=== PATIENT | female | born 1960 | race Hispanic/Latino ===

== ENCOUNTER 2021-03-04 23:46 | Inpatient (IN) | payer OTHER ==
--- OUTSIDE RECORDS SUMMARY | 2021-03-04 23:51 | XMS REPORT | Continuity of Care Document ---
:1960 Author Organization [facility] t Address [address] [place] [address] Care Team Providers Name Role Phone Samir Howard Attending Clinician Unavailable Tan Camargo DO Attending Clinician Shahab BAE Attending Clinician Unavailable Renetta MANDUJANO Attending Clinician Unavailable Fatemeh Miller MD F Attending Clinician Doctor Unassigned, Name Attending Clinician Unavailable Samir Howard Admitting Clinician Unavailable Payers Payer Name Policy Type Policy Number Effective Date Expiration Date Samir HA BCBS BLUE [id number] 2018 ADVANTAGE O 00:00:00 Problems Condition Condition Condition Status Onset Resolution Last Treating Co mments Source Name Details Category Date Date Treatment Clinician Date Morbid Morbid Disease Active 2015-03 Univers obesity obesity 2-01 [place] index 00 Me dical of 50 or of 50 or Branch higher higher Epiretinal Epiretinal Disease Active U [facility] membrane, membrane, 8-19 ity of left eye left eye 00:00: [place] 00 Medical Branch Cataracts, Cataracts, Disease Active U nivers bilateral bilateral 8-19 ity of 00:00: [place] 00 Medical Branch Epiretinal Epiretinal Disease Active U nivers membrane, membrane, 8-19 ity of left eye left eye 00:00: [place] 00 Medical Branch IIH IIH Disease Active Univers (idiopathi (idiopathi 428 it y of c c 00:00: [place] intracrani intracrani 00 Me dical al al Branch hypertensi hypertensi on) on) 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 00:00: [place] vein vein 00 Medical occlusion) occlusion) Br anch , left , left Macular Macular Disease Active Univers hole of hole of 4-28 [place] of right eye [place] 00:[place] Posterior Posterior Disease Active Uni vers vitreous vitreous 4-28 [place] of both 00 Medical eyes eyes 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 4- ity of 00:00: [place] 00 [facility] Branch Allergies, Adverse Reactions, Alerts Allergy Allergy Status Severity Reaction(s) Onset Inactive Treating Comm ents Source Name Type Date Date Clinician NO KNOWN Drug Active Univers ALLERGIE Class ity of S [facility] Social History Social Habit Start Date Stop Date Quantity Comments Source Tobacco use and 2019-07-06 2019-07-06 Never used Universit y of exposure 00:00:00 00:00:00 [facility] Alcohol intake 2019-07-06 2019-07-06 Current University 00:00:00 00:00:00 non-drinker of [facility] alcohol Branch (finding) Sex Ass[birth year] [facility] y of 00:00:00 00:00:00 [facility] Smoking Status Start Date Stop Date Source Never smoker [facility] Medications Ordered Filled Start Stop Current Ordering Indication Dosage Frequency Signature Comments Components Source Medication Medication Date Date Medication? Clinician (SIG) Name Name aflibercept 2020- No 2mg Unive rs (EYLEA) 06-07 ity of intravitrea 17:45: 16:51 [place] l injection 00 :00 Medical 2 mg Branch aflibercept 2019- No 2mg 2 mg, Univ ers (EYLEA) 06-07 Intravitre ity o f intravitrea 17:45: 16:51 al - Left [place] l injection 00 :00 Eye, ONCE, Me dical 2 mg 1 dose, Branch Ewa 06/08/19 at 1245, Routine
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 ity of VITAMIN D2, 21:11: [place] (VITAMIN D 44 Medical ORAL) Branch Magnesium 2019-0 Yes Take by Univ ers Oxide-Mg AA 1-18 mouth. ity of Chelate 21:11: [place] (MAGNESIUM, 44 Medical OXIDE/AA Branch CHELATE,) 300 mg Cap ERGOCALCIFE 2019-0 Yes Take by Un [facility] ROL, 1-18 mouth. ity of VITAMIN D2, 21:11: [place] (VITAMIN D 44 Medical ORAL) Branch Magnesium 2019-0 Yes Take by Univ ers Oxide-Mg AA 1-18 mouth. ity of Chelate 21:11: [place] (MAGNESIUM, 44 Medical OXIDE/AA Branch CHELATE,) 300 mg Cap ERGOCALCIFE 2019-0 Yes Take by [facility] ROL, 1-18 mouth. ity of VITAMIN D2, 21:11: [place] (VITAMIN D 44 Medical ORAL) Branch Magnesium 2019-0 Yes Take by Univ ers Oxide-Mg AA 1-18 mouth. ity of Chelate 21:11: [place] (MAGNESIUM, 44 Medical OXIDE/AA Branch CHELATE,) 300 mg Cap ERGOCALCIFE 2019-0 Yes Take by [facility] ROL, 1-18 mouth. ity of VITAMIN D2, 21:11: [place] (VITAMIN D 44 Medical ORAL) Branch Magnesium 2019-0 Yes Take by Univ ers Oxide-Mg AA 1-18 mouth. ity of Chelate 21:11: [place] (MAGNESIUM, 44 Medical OXIDE/AA Branch CHELATE,) 300 mg Cap ERGOCALCIFE 2019-0 Yes Take by Un [facility] ROL, 1-18 mouth. ity of VITAMIN D2, 21:11: [place] (VITAMIN D 44 Medical ORAL) Branch Magnesium 2019-0 Yes Take by Univ ers Oxide-Mg AA 1-18 mouth. ity of Chelate 21:11: [place] (MAGNESIUM, 44 Medical OXIDE/AA Branch CHELATE,) 300 mg Cap ERGOCALCIFE 2019-0 Yes Take by Un [facility] ROL, 1-18 mouth. ity of VITAMIN D2, 21:11: [place] (VITAMIN D 44 Medical ORAL) Branch Magnesium 2019-0 Yes Take by Univ ers Oxide-Mg AA 1-18 mouth. ity of Chelate 21:11: [place] (MAGNESIUM, 44 Medical OXIDE/AA Branch CHELATE,) 300 mg Cap ERGOCALCIFE 2019-0 Yes Take by Un [facility] ROL, 1-18 mouth. ity of VITAMIN D2, 21:11: [place] (VITAMIN D 44 Medical ORAL) Branch Magnesium 2019-0 Yes Take by Univ ers Oxide-Mg AA 1-18 mouth. ity of Chelate 21:11: [place] (MAGNESIUM, 44 Medical OXIDE/AA Branch CHELATE,) 300 mg Cap ERGOCALCIFE 2019-0 Yes Take by Un [facility] ROL, 1-18 mouth. ity of VITAMIN D2, 21:11: [place] (VITAMIN D 44 Medical ORAL) Branch Magnesium 2019-0 Yes Take by Univ ers Oxide-Mg AA 1-18 mouth. ity of Chelate 21:11: [place] (MAGNESIUM, 44 Medical OXIDE/AA Branch CHELATE,) 300 mg Cap ERGOCALCIFE 2019-0 Yes Take by Un [facility] ROL, 1-18 mouth. ity of VITAMIN D2, 21:11: [place] (VITAMIN D 44 Medical ORAL) Branch Magnesium 2019-0 Yes Take by Univ ers Oxide-Mg AA 1-18 mouth. ity of Chelate 21:11: [place] (MAGNESIUM, 44 Medical OXIDE/AA Branch CHELATE,) 300 mg Cap ERGOCALCIFE 2019-0 Yes Take by Un [facility] ROL, 1-18 mouth. ity of VITAMIN D2, 21:11: [place] (VITAMIN D 44 Medical ORAL) Branch Magnesium 2019-0 Yes Take by Univ ers Oxide-Mg AA 1-18 mouth. ity of Chelate 21:11: [place] (MAGNESIUM, 44 Medical OXIDE/AA Branch CHELATE,) 300 mg Cap ERGOCALCIFE 2019-0 Yes Take by Un [facility] ROL, 1-18 mouth. ity of VITAMIN D2, 21:11: [place] (VITAMIN D 44 Medical ORAL) Branch Magnesium 2019-0 Yes Take by Univ ers Oxide-Mg AA 1-18 mouth. ity of Chelate 21:11: [place] (MAGNESIUM, 44 Medical OXIDE/AA Branch CHELATE,) 300 mg Cap ERGOCALCIFE 2019-0 Yes Take by Un [facility] ROL, 1-18 mouth. ity of VITAMIN D2, 21:11: [place] (VITAMIN D 44 Medical ORAL) Branch Magnesium 2019-0 Yes Take by Univ ers Oxide-Mg AA 1-18 mouth. ity of Chelate 21:11: [place] (MAGNESIUM, 44 Medical OXIDE/AA Branch CHELATE,) 300 mg Cap ERGOCALCIFE 2019-0 Yes Take by Un [facility] ROL, 1-18 mouth. ity of VITAMIN D2, 21:11: [place] (VITAMIN D 44 Medical ORAL) Branch Magnesium 2019-0 Yes Take by Univ ers Oxide-Mg AA 1-18 mouth. ity of Chelate 21:11: [place] (MAGNESIUM, 44 Medical OXIDE/AA Branch CHELATE,) 300 mg Cap ERGOCALCIFE 2019-0 Yes Take by [facility] ROL, 1-18 mouth. ity of VITAMIN D2, 21:11: [place] (VITAMIN D 44 Medical ORAL) Branch Magnesium 2019-0 Yes Take by Univ ers Oxide-Mg AA 1-18 mouth. ity of Chelate 21:11: [place] (MAGNESIUM, 44 Medical OXIDE/AA Branch CHELATE,) 300 mg Cap ERGOCALCIFE 2019-0 Yes Take by [facility] ROL, 1-18 mouth. ity of VITAMIN D2, 21:11: [place] (VITAMIN D 44 Medical ORAL) Branch Magnesium 2019-0 Yes Take by Univ ers Oxide-Mg AA 1-18 mouth. ity of Chelate 21:11: [place] (MAGNESIUM, 44 Medical OXIDE/AA Branch CHELATE,) 300 mg Cap ERGOCALCIFE 2019-0 Yes Take by Un [facility] ROL, 1-18 mouth. ity of VITAMIN D2, 21:11: [place] (VITAMIN D 44 Medical ORAL) Branch Magnesium 2019-0 Yes Take by Univ ers Oxide-Mg AA 1-18 mouth. ity of Chelate 21:11: [place] (MAGNESIUM, 44 Medical OXIDE/AA Branch CHELATE,) 300 mg Cap ERGOCALCIFE 2019-0 Yes Take by Un [facility] ROL, 1-18 mouth. ity of VITAMIN D2, 21:11: [place] (VITAMIN D 44 Medical ORAL) Branch Magnesium 2019-0 Yes Take by Univ ers Oxide-Mg AA 1-18 mouth. ity of Chelate 21:11: [place] (MAGNESIUM, 44 Medical OXIDE/AA Branch CHELATE,) 300 mg Cap valsartan 2018-0 Yes 40mg Take 40 mg [facility] (DIOVAN) 40 9-21 by mouth ity of mg tablet 20:39: daily. [place] [address] Medical Branch valsartan 2018-0 Yes 40mg Take 40 mg [facility] (DIOVAN) 40 9-21 by mouth ity of mg tablet 20:39: daily. [address] Branch valsartan 2018-0 Yes 40mg Take 40 mg [facility] (DIOVAN) 40 9-21 by mouth ity of mg tablet 20:39: daily. [address] valsartan 2018-0 Yes 40mg Take 40 mg [facility] (DIOVAN) 40 9-21 by mouth ity of mg tablet 20:39: daily. [address] valsartan 2018-0 Yes 40mg Take 40 mg [facility] (DIOVAN) 40 9-21 by mouth ity of mg tablet 20:39: daily. [address] valsartan 0 Yes 40mg Take 40 mg [facility] (DIOVAN) 40 9-21 by mouth ity of mg tablet 20:39: daily. [address] valsartan 0 Yes 40mg Take 40 mg [facility] (DIOVAN) 40 9-21 by mouth ity of mg tablet 20:39: daily. [address] valsartan Yes 40mg Take 40 mg [facility] (DIOVAN) 40 9-21 by mouth ity of mg tablet 20:39: daily. [address] valsartan Yes 40mg Take 40 mg [place] (DIOVAN) 40 9-21 by mouth ity of mg tablet 20:39: daily. [address] valsartan Yes 40mg Take 40 mg [place] (DIOVAN) 40 9-21 by mouth ity of mg tablet 20:39: daily. [address] valsartan 0 Yes 40mg Take 40 mg [facility] [place] (DIOVAN) 40 9-21 by mouth ity of mg tablet 20:39: daily. [address] valsartan 0 Yes 40mg Take 40 mg [place] (DIOVAN) 40 9-21 by mouth ity of mg tablet 20:39: daily. [address] valsartan 0 Yes 40mg Take 40 mg [facility] [place] (DIOVAN) 40 9-21 by mouth ity of mg tablet 20:39: daily. [address] valsartan 2018-0 Yes 40mg Take 40 mg [facility] (DIOVAN) 40 9-21 by mouth ity of mg tablet 20:39: daily. [address] valsartan 2017-0 Yes 40mg Take 40 mg [facility] [place] (DIOVAN) 40 9-21 by mouth ity of mg tablet 20:39: daily. [address] valsartan Yes 40mg Take 40 mg [facility] (DIOVAN) 40 9-21 by mouth ity of mg tablet 20:39: daily. [address] Branch valsartan Yes 40mg Take 40 mg [facility] (DIOVAN) 40 9-21 by mouth ity of mg tablet 20:39: daily. [place] [address] Medical Branch losartan 50 Yes TK 1 T PO U nivers mg tablet 9-08 QD ity of 00:00: [place] [facility] losartan 50 Yes TK 1 T PO U nivers mg tablet 12-04 QD ity of 00:00: [place] [facility] losartan 50 2017- Yes TK 1 T PO U nivers mg tablet 12-04 QD ity of 00:00: [place] [facility] losartan 50 Yes TK 1 T PO U nivers mg tablet 12-04 QD ity of 00:00: [place] [facility] losartan 50 Yes TK 1 T PO U nivers mg tablet 12-04 QD ity of 00:00: [place] [facility] losartan 50 Yes TK 1 T PO U nivers mg tablet 12-04 QD ity of 00:00: [place] [address] Medical Branch losartan 50 2017- Yes TK 1 T PO U nivers mg tablet 12-04 QD ity of 00:00: [place] [facility] Branch losartan 50 2017- Yes TK 1 T PO U nivers mg tablet 12-04 QD ity of 00:00: [place] [facility] Branch losartan 50 Yes TK 1 T PO U nivers mg tablet 12-04 QD ity of 00:00: [place] [facility] losartan 50 2017- Yes TK 1 T PO U nivers mg tablet 12-04 QD ity of 00:00: [place] [facility] losartan 50 Yes TK 1 T PO U nivers mg tablet 08 QD ity of 00:00: [place] [facility] losartan 50 2017- Yes TK 1 T PO U nivers mg tablet - QD ity of 00:00: [place] [facility] Branch losartan 50 Yes TK 1 T PO U nivers mg tablet 08 QD ity of 00:00: [place] [facility] Branch losartan 50 2017- Yes TK 1 T PO U nivers mg tablet -08 QD ity of 00:00: 00 Medical Branch losartan 50 2018-0 Yes TK 1 T PO U nivers mg tablet 08 QD ity of 00:00: Medical Branch losartan 50 2018-0 Yes TK 1 T PO U nivers mg tablet -08 QD ity of 00:00: Medical Branch losartan 50 2018-0 Yes TK 1 T PO U nivers mg tablet 9-08 QD ity of 00:00: Medical Branch AMOXICILLIN 2018-0 Yes Take by [facility] /POTASSIUM 6-20 mouth. ity of CLAV 19:55: [place] (AUGMENTIN 50 Medical ORAL) Branch AMOXICILLIN 2017-0 Yes Take by [facility] /POTASSIUM 6-20 mouth. ity of CLAV 19:55: [place] (AUGMENTIN 50 Medical ORAL) Branch AMOXICILLIN 2017-0 Yes Take by [facility] /POTASSIUM 6-20 mouth. ity of CLAV 19:55: [place] (AUGMENTIN 50 Medical ORAL) Branch AMOXICILLIN 0 Yes Take by [facility] /POTASSIUM 6-20 mouth. ity of CLAV 19:55: [place] (AUGMENTIN 50 Medical ORAL) Branch AMOXICILLIN 0 Yes Take by [facility] /POTASSIUM 6-20 mouth. ity of CLAV 19:55: [place] (AUGMENTIN 50 Medical ORAL) Branch AMOXICILLIN 0 Yes Take by [facility] /POTASSIUM 6-20 mouth. ity of CLAV 19:55: [place] (AUGMENTIN 50 Medical ORAL) Branch AMOXICILLIN 2017-0 Yes Take by [facility] /POTASSIUM 6-20 mouth. ity of CLAV 19:55: [place] (AUGMENTIN 50 Medical ORAL) Branch AMOXICILLIN 0 Yes Take by [facility] /POTASSIUM 6-20 mouth. ity of CLAV 19:55: [place] (AUGMENTIN 50 Medical ORAL) Branch AMOXICILLIN 2017-0 Yes Take by [facility] /POTASSIUM 6-20 mouth. ity of CLAV 19:55: [place] (AUGMENTIN 50 Medical ORAL) Branch AMOXICILLIN 2017-0 Yes Take by [facility] /POTASSIUM 6-20 mouth. ity of CLAV 19:55: [place] (AUGMENTIN 50 Medical ORAL) Branch AMOXICILLIN 2017-0 Yes Take by [facility] /POTASSIUM 6-20 mouth. ity of CLAV 19:55: [place] (AUGMENTIN 50 Medical ORAL) Branch AMOXICILLIN 2017-0 Yes Take by [facility] /POTASSIUM 6-20 mouth. ity of CLAV 19:55: [place] (AUGMENTIN 50 Medical ORAL) Branch AMOXICILLIN 2018-0 Yes Take by [facility] /POTASSIUM 6-20 mouth. ity of CLAV 19:55: [place] (AUGMENTIN 50 Medical ORAL) Branch AMOXICILLIN Yes Take by [facility] /POTASSIUM 6-20 mouth. ity of CLAV 19:55: [place] (AUGMENTIN 50 Medical ORAL) Branch AMOXICILLIN Yes Take by [facility] /POTASSIUM 6-20 mouth. ity of CLAV 19:55: [place] (AUGMENTIN 50 Medical ORAL) Branch AMOXICILLIN Yes Take by [facility] /POTASSIUM 6-20 mouth. ity of CLAV 19:55: [place] (AUGMENTIN 50 Medical ORAL) Branch AMOXICILLIN Yes Take by [facility] /POTASSIUM 6-20 mouth. ity of CLAV 19:55: [place] (AUGMENTIN 50 Medical ORAL) Branch ketorolac Yes Univers 0.4 % 4-27 ity of ophthalmic 00:00: [place] solution Medical Branch ketorolac Yes Univers 0.4 % 4-27 ity of ophthalmic 00:00: [place] solution Medical Branch ketorolac Yes Univers 0.4 % 4-27 ity of ophthalmic 00:00: [place] solution Medical Branch ketorolac 0 Yes Univers 0.4 % 4-27 ity of ophthalmic 00:00: [place] solution Medical Branch ketorolac 0 Yes Univers 0.4 % 4-27 ity of ophthalmic 00:00: [place] solution Medical Branch ketorolac Yes Univers 0.4 % 4-27 ity of ophthalmic 00:00: [place] solution Medical Branch ketorolac [address] Yes Univers 0.4 % 4-27 ity of ophthalmic 00:00: [place] solution Medical Branch ketorolac [address] Yes Univers 0.4 % 4-27 ity of ophthalmic 00:00: [place] solution Medical Branch ketorolac 0 Yes Univers 0.4 % 4-27 ity of ophthalmic 00:00: [place] solution Medical Branch ketorolac 2017-0 Yes Univers 0.4 % 4-27 ity of ophthalmic 00:00: [place] solution Medical Branch ketorolac 0 Yes Univers 0.4 % 4-27 ity of ophthalmic 00:00: [place] solution Medical Branch ketorolac 2016-0 Yes Univers 0.4 % 4-27 ity of ophthalmic 00:00: [place] solution Medical Branch ketorolac Yes Univers 0.4 % 4-27 ity of ophthalmic 00:00: [place] solution Medical Branch ketorolac Yes Univers 0.4 % 4-27 ity of ophthalmic 00:00: [place] solution Medical Branch ketorolac Yes Univers 0.4 % 4-27 ity of ophthalmic 00:00: [place] solution Medical Branch ketorolac Yes Univers 0.4 % 4-27 ity of ophthalmic 00:00: [place] solution Medical Branch ketorolac Yes Univers 0.4 % 4-27 ity of ophthalmic 00:00: [place] solution Medical Branch KCL 20 mEq Yes TK 1 T PO [facility] tablet 3-02 BID ity of 00:00: Medical Branch KCL 20 mEq Yes TK 1 T PO [facility] tablet 3-02 BID ity of 00:00: Medical Branch KCL 20 mEq Yes TK 1 T PO [facility] [place] tablet 3-02 BID ity of 00:00: Medical Branch KCL 20 mEq Yes TK 1 T PO [facility] [place] tablet 3-02 BID ity of 00:00: Medical Branch KCL 20 mEq Yes TK 1 T PO [facility] [place] tablet 3-02 BID ity of 00:00: Medical Branch KCL 20 mEq Yes TK 1 T PO [facility] [place] tablet 3-02 BID ity of 00:00: Medical Branch KCL 20 mEq Yes TK 1 T PO [facility] [place] tablet 3-02 BID ity of 00:00: Medical Branch KCL 20 mEq Yes TK 1 T PO [place] tablet 3-02 BID ity of 00:00: [place] [facility] KCL 20 mEq Yes TK 1 T PO [facility] [place] tablet 3-02 BID ity of 00:00: Medical Branch KCL 20 mEq Yes TK 1 T PO [facility] [place] tablet 3-02 BID ity of 00:00: Medical Branch KCL 20 mEq Yes TK 1 T PO [place] tablet 3-02 BID ity of 00:00: Medical Branch KCL 20 mEq Yes TK 1 T PO [place] tablet 3-02 BID ity of 00:00: [place] [facility] KCL 20 mEq Yes TK 1 T PO [facility] [place] tablet 3- BID ity of 00:00: Medical Branch KCL 20 mEq Yes TK 1 T PO [place] tablet 3- BID ity of 00:00: Medical Branch KCL 20 mEq Yes TK 1 T PO [place] tablet 3- BID ity of 00:00: Medical Branch KCL 20 mEq Yes TK 1 T PO [place] tablet 3- BID ity of 00:00: Medical Branch KCL 20 mEq Yes TK 1 T PO [place] tablet 3- BID ity of 00:00: Medical Branch prednisoLON Yes 1[drp] Place 1 U nivers E acetate 1 2-13 Drop in ity o f % 00:00: right eye [place] ophthalmic 00 4 (four) Medic al suspension times Branch drops daily. prednisoLON Yes 1[drp] Place 1 U nivers E acetate 1 2-13 Drop in ity o f % 00:00: right eye [place] ophthalmic 00 4 (four) Medic al suspension times Branch drops daily. prednisoLON Yes 1[drp] Place 1 U nivers E acetate 1 2-13 Drop in ity o f % 00:00: right eye [place] ophthalmic 00 4 (four) Medic al suspension times Branch drops daily. prednisoLON Yes 1[drp] Place 1 U nivers E acetate 1 2-13 Drop in ity o f % 00:00: right eye [place] ophthalmic 00 4 (four) Medic al suspension times Branch drops daily. prednisoLON Yes 1[drp] Place 1 U nivers E acetate 1 2-13 Drop in ity o f % 00:00: right eye [place] ophthalmic 00 4 (four) Medic al suspension times Branch drops daily. prednisoLON Yes 1[drp] Place 1 U nivers E acetate 1 2-13 Drop in ity o f % 00:00: right eye [place] ophthalmic 00 4 (four) Medic al suspension times Branch drops daily. prednisoLON Yes 1[drp] Place 1 U nivers E acetate 1 2-13 Drop in ity o f % 00:00: right eye [place] ophthalmic 00 4 (four) Medic al suspension times Branch drops daily. prednisoLON Yes 1[drp] Place 1 U nivers E acetate 1 2-13 Drop in ity o f % 00:00: right eye [place] ophthalmic 00 4 (four) Medic al suspension times Branch drops daily. prednisoLON Yes 1[drp] Place 1 U nivers E acetate 1 2-13 Drop in ity o f % 00:00: right eye [place] ophthalmic 00 4 (four) Medic al suspension times Branch drops daily. prednisoLON Yes 1[drp] Place 1 U nivers E acetate 1 2-13 Drop in ity o f % 00:00: right eye [place] ophthalmic 00 4 (four) Medic al suspension times Branch drops daily. prednisoLON Yes 1[drp] Place 1 U nivers E acetate 1 2-13 Drop in ity o f % 00:00: right eye [place] ophthalmic 00 4 (four) Medic al suspension times Branch drops daily. prednisoLON Yes 1[drp] Place 1 U nivers E acetate 1 2-13 Drop in ity o f % 00:00: right eye [place] ophthalmic 00 4 (four) Medic al suspension times Branch drops daily. prednisoLON Yes 1[drp] Place 1 U nivers E acetate 1 2-13 Drop in ity o f % 00:00: right eye [place] ophthalmic 00 4 (four) Medic al suspension times Branch drops daily. prednisoLON Yes 1[drp] Place 1 U nivers E acetate 1 2-13 Drop in ity o f % 00:00: right eye [place] ophthalmic 00 4 (four) Medic al suspension times Branch drops daily. prednisoLON Yes 1[drp] Place 1 U nivers E acetate 1 2-13 Drop in ity o f % 00:00: right eye [place] ophthalmic 00 4 (four) Medic al suspension times Branch drops daily. prednisoLON Yes 1[drp] Place 1 U nivers E acetate 1 2-13 Drop in ity o f % 00:00: right eye [place] ophthalmic 00 4 (four) Medic al suspension times Branch drops daily. prednisoLON Yes 1[drp] Place 1 U nivers E acetate 1 2-13 Drop in ity o f % 00:00: right eye [place] ophthalmic 00 4 (four) Medic al suspension times Branch drops daily. acetaZOLAMI Yes Univer s DE (DIAMOX) 3-16 ity of 250 mg 00:00: [place] tablet 00 Medical Branch levothyroxi 0 Yes Univer s ne 3-16 ity of (SYNTHROID) 00:00: [place] 75 mcg 00 Medical tablet Branch acetaZOLAMI Yes Univer s DE (DIAMOX) 3-16 ity of 250 mg 00:00: [place] tablet 00 Medical Branch levothyroxi 0 Yes Univer s ne 3-16 ity of (SYNTHROID) 00:00: [place] 75 mcg 00 Medical tablet Branch acetaZOLAMI Yes Univer s DE (DIAMOX) 3-16 ity of 250 mg 00:00: [place] tablet 00 Medical Branch levothyroxi 0 Yes Univer s ne 3-16 ity of (SYNTHROID) 00:00: [place] 75 mcg 00 Medical tablet Branch acetaZOLAMI Yes Univer s DE (DIAMOX) 3-16 ity of 250 mg 00:00: [place] tablet 00 Medical Branch levothyroxi 0 Yes Univer s ne 3-16 ity of (SYNTHROID) 00:00: [place] 75 mcg 00 Medical tablet Branch acetaZOLAMI Yes Univer s DE (DIAMOX) 3-16 ity of 250 mg 00:00: [place] tablet 00 Medical Branch levothyroxi 0 Yes Univer s ne 3-16 ity of (SYNTHROID) 00:00: [place] 75 mcg 00 Medical tablet Branch acetaZOLAMI 0 Yes Univer s DE (DIAMOX) 3-16 ity of 250 mg 00:00: [place] tablet 00 Medical Branch levothyroxi 0 Yes Univer s ne 3-16 ity of (SYNTHROID) 00:00: [place] 75 mcg 00 Medical tablet Branch acetaZOLAMI 0 Yes Univer s DE (DIAMOX) 3-16 ity of 250 mg 00:00: [place] tablet 00 Medical Branch levothyroxi 0 Yes Univer s ne 3-16 ity of (SYNTHROID) 00:00: [place] 75 mcg 00 Medical tablet Branch acetaZOLAMI 0 Yes Univer s DE (DIAMOX) 3-16 ity of 250 mg 00:00: [place] tablet 00 Medical Branch acetaZOLAMI 0 Yes Univer s DE (DIAMOX) 3-16 ity of 250 mg 00:00: [place] tablet 00 Medical Branch levothyroxi 2016-0 Yes Univer s ne 3-16 ity of (SYNTHROID) 00:00: [place] 75 mcg 00 Medical tablet Branch levothyroxi 0 Yes Univer s ne 3-16 ity of (SYNTHROID) 00:00: [place] 75 mcg 00 Medical tablet Branch acetaZOLAMI 0 Yes Univer s DE (DIAMOX) 3-16 ity of 250 mg 00:00: [place] tablet 00 Medical Branch levothyroxi 0 Yes Univer s ne 3-16 ity of (SYNTHROID) 00:00: [place] 75 mcg 00 Medical tablet Branch acetaZOLAMI 0 Yes Univer s DE (DIAMOX) 3-16 ity of 250 mg 00:00: [place] tablet 00 Medical Branch levothyroxi 0 Yes Univer s ne 3-16 ity of (SYNTHROID) 00:00: [place] 75 mcg 00 Medical tablet Branch acetaZOLAMI 0 Yes Univer s DE (DIAMOX) 3-16 ity of 250 mg 00:00: [place] tablet 00 Medical Branch levothyroxi 0 Yes Univer s ne 3-16 ity of (SYNTHROID) 00:00: [place] 75 mcg 00 Medical tablet Branch acetaZOLAMI 0 Yes Univer s DE (DIAMOX) 3-16 ity of 250 mg 00:00: [place] tablet 00 Medical Branch levothyroxi 0 Yes Univer s ne 3-16 ity of (SYNTHROID) 00:00: [place] 75 mcg 00 Medical tablet Branch acetaZOLAMI 0 Yes Univer s DE (DIAMOX) 3-16 ity of 250 mg 00:00: [place] tablet 00 Medical Branch levothyroxi 0 Yes Univer s ne 3-16 ity of (SYNTHROID) 00:00: [place] 75 mcg 00 Medical tablet Branch acetaZOLAMI 0 Yes Univer s DE (DIAMOX) 3-16 ity of 250 mg 00:00: [place] tablet 00 Medical Branch levothyroxi 0 Yes Univer s ne 3-16 ity of (SYNTHROID) 00:00: [place] 75 mcg 00 Medical tablet Branch acetaZOLAMI 0 Yes Univer s DE (DIAMOX) 3-16 ity of 250 mg 00:00: [place] tablet 00 Medical Branch levothyroxi 0 Yes Univer s ne 3-16 ity of (SYNTHROID) 00:00: [place] 75 mcg 00 Medical tablet Branch acetaZOLAMI 0 Yes Univer s DE (DIAMOX) 3-16 ity of 250 mg 00:00: [place] tablet 00 Medical Branch levothyroxi 0 Yes Univer s ne 3-16 ity of (SYNTHROID) 00:00: [place] 75 mcg 00 Medical tablet Branch allopurinol 0 Yes Univer s (ZYLOPRIM) 3-15 ity of 300 mg 00:00: [place] tablet 00 Medical Branch omeprazole 0 Yes Univers (PRILOSEC) 3-15 ity of 20 mg 00:00: [place] capsule 00 Medical Branch triamterene Yes Univer s -hydrochlor 3-15 ity of othiazid 00:00: [place] (MAXZIDE) 00 Medical 75-50 mg Branch tablet warfarin 0 Yes Univers (COUMADIN) 3-15 ity of 5 mg tablet 00:00: [place] 00 Medical Branch warfarin 0 Yes Univers (COUMADIN) 3-15 ity of 7.5 mg 00:00: [place] tablet 00 Medical Branch allopurinol 0 Yes Univer s (ZYLOPRIM) 3-15 ity of 300 mg 00:00: [place] tablet 00 Medical Branch omeprazole 0 Yes Univers (PRILOSEC) 3-15 ity of 20 mg 00:00: [place] capsule 00 Medical Branch triamterene 0 Yes Univer s -hydrochlor 3-15 ity of othiazid 00:00: [place] (MAXZIDE) 00 Medical 75-50 mg Branch tablet warfarin 0 Yes Univers (COUMADIN) 3-15 ity of 5 mg tablet 00:00: [place] 00 Medical Branch warfarin 0 Yes Univers (COUMADIN) 3-15 ity of 7.5 mg 00:00: [place] tablet 00 Medical Branch allopurinol 0 Yes Univer s (ZYLOPRIM) 3-15 ity of 300 mg 00:00: [place] tablet 00 Medical Branch omeprazole 0 Yes Univers (PRILOSEC) 3-15 ity of 20 mg 00:00: [place] capsule 00 Medical Branch triamterene 2016-0 Yes Univer s -hydrochlor 3-15 ity of othiazid 00:00: [place] (MAXZIDE) 00 Medical 75-50 mg Branch tablet warfarin 0 Yes Univers (COUMADIN) 3-15 ity of 5 mg tablet 00:00: [place] 00 Medical Branch warfarin 20160 Yes Univers (COUMADIN) 3-15 ity of 7.5 mg 00:00: [place] tablet 00 Medical Branch allopurinol 20160 Yes Univer s (ZYLOPRIM) 3-15 ity of 300 mg 00:00: [place] tablet 00 Medical Branch omeprazole 0 Yes Univers (PRILOSEC) 3-15 ity of 20 mg 00:00: [place] capsule 00 Medical Branch triamterene 0 Yes Univer s -hydrochlor 3-15 ity of othiazid 00:00: [place] (MAXZIDE) 00 Medical 75-50 mg Branch tablet warfarin 0 Yes Univers (COUMADIN) 3-15 ity of 5 mg tablet 00:00: [place] 00 Medical Branch warfarin 0 Yes Univers (COUMADIN) 3-15 ity of 7.5 mg 00:00: [place] tablet 00 Medical Branch allopurinol 0 Yes Univer s (ZYLOPRIM) 3-15 ity of 300 mg 00:00: [place] tablet 00 Medical Branch omeprazole 0 Yes Univers (PRILOSEC) 3-15 ity of 20 mg 00:00: [place] capsule 00 Medical Branch triamterene 0 Yes Univer s -hydrochlor 3-15 ity of othiazid 00:00: [place] (MAXZIDE) 00 Medical 75-50 mg Branch tablet warfarin 20160 Yes Univers (COUMADIN) 3-15 ity of 5 mg tablet 00:00: [place] 00 Medical Branch warfarin 20160 Yes Univers (COUMADIN) 3-15 ity of 7.5 mg 00:00: [place] tablet 00 Medical Branch allopurinol 20160 Yes Univer s (ZYLOPRIM) 3-15 ity of 300 mg 00:00: [place] tablet 00 Medical Branch omeprazole 0 Yes Univers (PRILOSEC) 3-15 ity of 20 mg 00:00: [place] capsule 00 Medical Branch triamterene 0 Yes Univer s -hydrochlor 3-15 ity of othiazid 00:00: [place] (MAXZIDE) 00 Medical 75-50 mg Branch tablet warfarin 0 Yes Univers (COUMADIN) 3-15 ity of 5 mg tablet 00:00: [place] 00 Medical Branch warfarin 0 Yes Univers (COUMADIN) 3-15 ity of 7.5 mg 00:00: [place] tablet 00 Medical Branch allopurinol 0 Yes Univer s (ZYLOPRIM) 3-15 ity of 300 mg 00:00: [place] tablet 00 Medical Branch omeprazole 0 Yes Univers (PRILOSEC) 3-15 ity of 20 mg 00:00: [place] capsule 00 Medical Branch triamterene 0 Yes Univer s -hydrochlor 3-15 ity of othiazid 00:00: [place] (MAXZIDE) 00 Medical 75-50 mg Branch tablet warfarin 0 Yes Univers (COUMADIN) 3-15 ity of 5 mg tablet 00:00: [place] 00 Medical Branch warfarin 0 Yes Univers (COUMADIN) 3-15 ity of 7.5 mg 00:00: [place] tablet 00 Medical Branch allopurinol 0 Yes Univer s (ZYLOPRIM) 3-15 ity of 300 mg 00:00: [place] tablet 00 Medical Branch allopurinol 0 Yes Univer s (ZYLOPRIM) 3-15 ity of 300 mg 00:00: [place] tablet 00 Medical Branch omeprazole 0 Yes Univers (PRILOSEC) 3-15 ity of 20 mg 00:00: [place] capsule 00 Medical Branch triamterene 0 Yes Univer s -hydrochlor 3-15 ity of othiazid 00:00: [place] (MAXZIDE) 00 Medical 75-50 mg Branch tablet warfarin 20160 Yes Univers (COUMADIN) 3-15 ity of 5 mg tablet 00:00: [place] 00 Medical Branch warfarin 0 Yes Univers (COUMADIN) 3-15 ity of 7.5 mg 00:00: [place] tablet 00 Medical Branch omeprazole 0 Yes Univers (PRILOSEC) 3-15 ity of 20 mg 00:00: [place] capsule 00 Medical Branch allopurinol 0 Yes Univer s (ZYLOPRIM) 3-15 ity of 300 mg 00:00: [place] tablet 00 Medical Branch omeprazole 0 Yes Univers (PRILOSEC) 3-15 ity of 20 mg 00:00: [place] capsule 00 Medical Branch triamterene 0 Yes Univer s -hydrochlor 3-15 ity of othiazid 00:00: [place] (MAXZIDE) 00 Medical 75-50 mg Branch tablet warfarin 20160 Yes Univers (COUMADIN) 3-15 ity of 5 mg tablet 00:00: [place] 00 Medical Branch warfarin 20160 Yes Univers (COUMADIN) 3-15 ity of 7.5 mg 00:00: [place] tablet 00 Medical Branch triamterene 0 Yes Univer s -hydrochlor 3-15 ity of othiazid 00:00: [place] (MAXZIDE) 00 Medical 75-50 mg Branch tablet warfarin 0 Yes Univers (COUMADIN) 3-15 ity of 5 mg tablet 00:00: [place] 00 Medical Branch allopurinol 0 Yes Univer s (ZYLOPRIM) 3-15 ity of 300 mg 00:00: [place] tablet 00 Medical Branch omeprazole 0 Yes Univers (PRILOSEC) 3-15 ity of 20 mg 00:00: [place] capsule 00 Medical Branch triamterene 0 Yes Univer s -hydrochlor 3-15 ity of othiazid 00:00: [place] (MAXZIDE) 00 Medical 75-50 mg Branch tablet warfarin 0 Yes Univers (COUMADIN) 3-15 ity of 5 mg tablet 00:00: [place] 00 Medical Branch warfarin 20160 Yes Univers (COUMADIN) 3-15 ity of 7.5 mg 00:00: [place] tablet 00 Medical Branch warfarin 20160 Yes Univers (COUMADIN) 3-15 ity of 7.5 mg 00:00: [place] tablet 00 Medical Branch allopurinol 20160 Yes Univer s (ZYLOPRIM) 3-15 ity of 300 mg 00:00: [place] tablet 00 Medical Branch omeprazole 20160 Yes Univers (PRILOSEC) 3-15 ity of 20 mg 00:00: [place] capsule 00 Medical Branch triamterene 0 Yes Univer s -hydrochlor 3-15 ity of othiazid 00:00: [place] (MAXZIDE) 00 Medical 75-50 mg Branch tablet warfarin 0 Yes Univers (COUMADIN) 3-15 ity of 5 mg tablet 00:00: [place] 00 Medical Branch warfarin 2016-0 Yes Univers (COUMADIN) 3-15 ity of 7.5 mg 00:00: [place] tablet 00 Medical Branch allopurinol 0 Yes Univer s (ZYLOPRIM) 3-15 ity of 300 mg 00:00: [place] tablet 00 Medical Branch omeprazole 0 Yes Univers (PRILOSEC) 3-15 ity of 20 mg 00:00: [place] capsule 00 Medical Branch triamterene 0 Yes Univer s -hydrochlor 3-15 ity of othiazid 00:00: [place] (MAXZIDE) 00 Medical 75-50 mg Branch tablet warfarin 0 Yes Univers (COUMADIN) 3-15 ity of 5 mg tablet 00:00: [place] 00 Medical Branch warfarin 0 Yes Univers (COUMADIN) 3-15 ity of 7.5 mg 00:00: [place] tablet 00 Medical Branch allopurinol Yes Univer s (ZYLOPRIM) 3-15 ity of 300 mg 00:00: [place] tablet 00 Medical Branch omeprazole 0 Yes Univers (PRILOSEC) 3-15 ity of 20 mg 00:00: [place] capsule 00 Medical Branch triamterene Yes Univer s -hydrochlor 3-15 ity of othiazid 00:00: [place] (MAXZIDE) 00 Medical 75-50 mg Branch tablet warfarin 0 Yes Univers (COUMADIN) 3-15 ity of 5 mg tablet 00:00: [place] 00 Medical Branch warfarin 0 Yes Univers (COUMADIN) 3-15 ity of 7.5 mg 00:00: [place] tablet 00 Medical Branch allopurinol 0 Yes Univer s (ZYLOPRIM) 3-15 ity of 300 mg 00:00: [place] tablet 00 Medical Branch omeprazole 0 Yes Univers (PRILOSEC) 3-15 ity of 20 mg 00:00: [place] capsule 00 Medical Branch triamterene 0 Yes Univer s -hydrochlor 3-15 ity of othiazid 00:00: [place] (MAXZIDE) 00 Medical 75-50 mg Branch tablet warfarin 0 Yes Univers (COUMADIN) 3-15 ity of 5 mg tablet 00:00: [place] 00 Medical Branch warfarin 0 Yes Univers (COUMADIN) 3-15 ity of 7.5 mg 00:00: [place] tablet 00 Medical Branch allopurinol 2016-0 Yes Univer s (ZYLOPRIM) 3-15 ity of 300 mg 00:00: [place] tablet 00 Medical Branch omeprazole Yes Univers (PRILOSEC) 3-15 ity of 20 mg 00:00: [place] capsule 00 Medical Branch triamterene Yes Univer s -hydrochlor 3-15 ity of othiazid 00:00: [place] (MAXZIDE) 00 Medical 75-50 mg Branch tablet warfarin 0 Yes Univers (COUMADIN) 3-15 ity of 5 mg tablet 00:00: [place] [facility] warfarin Yes Univers (COUMADIN) 3-15 ity of 7.5 mg 00:00: [place] tablet 00 Medical Branch allopurinol Yes Univer s (ZYLOPRIM) 3-15 ity of 300 mg 00:00: [place] tablet 00 Medical Branch omeprazole Yes Univers (PRILOSEC) 3-15 ity of 20 mg 00:00: [place] capsule 00 Medical Branch triamterene Yes Univer s -hydrochlor 3-15 ity of othiazid 00:00: [place] (MAXZIDE) 00 Medical 75-50 mg Branch tablet warfarin 0 Yes Univers (COUMADIN) 3-15 ity of 5 mg tablet 00:00: [place] [facility] warfarin 0 Yes Univers (COUMADIN) 3-15 ity of 7.5 mg 00:00: [place] tablet 00 Medical Branch traMADOL Yes Univers (ULTRAM) 50 2-17 ity of mg tablet 00:00: Medical Branch traMADOL Yes Univers (ULTRAM) 50 2-17 ity of mg tablet 00:00: Medical Branch traMADOL Yes Univers (ULTRAM) 50 2-17 ity of mg tablet 00:00: [place] [facility] traMADOL 0 Yes Univers (ULTRAM) 50 2-17 ity of mg tablet 00:00: Medical Branch traMADOL 0 Yes Univers (ULTRAM) 50 2-17 ity of mg tablet 00:00: [place] [facility] traMADOL 0 Yes Univers (ULTRAM) 50 2-17 ity of mg tablet 00:00: Medical Branch traMADOL 0 Yes Univers (ULTRAM) 50 2-17 ity of mg tablet 00:00: [place] [facility] traMADOL 20160 Yes Univers (ULTRAM) 50 2-17 ity of mg tablet 00:00: Medical Branch traMADOL 2016-0 Yes Univers (ULTRAM) 50 2-17 ity of mg tablet 00:00: Medical Branch traMADOL 2016-0 Yes Univers (ULTRAM) 50 2-17 ity of mg tablet 00:00: [place] [facility] traMADOL 2016-0 Yes Univers (ULTRAM) 50 2-17 ity of mg tablet 00:00: [place] [facility] traMADOL 2016-0 Yes Univers (ULTRAM) 50 2-17 ity of mg tablet 00:00: [place] [facility] traMADOL 2016-0 Yes Univers (ULTRAM) 50 2-17 ity of mg tablet 00:00: [place] [facility] traMADOL 20160 Yes Univers (ULTRAM) 50 2-17 ity of mg tablet 00:00: [place] [facility] traMADOL 2016-0 Yes Univers (ULTRAM) 50 2-17 ity of mg tablet 00:00: [place] [facility] traMADOL 20160 Yes Univers (ULTRAM) 50 2-17 ity of mg tablet 00:00: [place] [facility] traMADOL 2016-0 Yes Univers (ULTRAM) 50 2-17 ity of mg tablet 00:00: [place] [address] Medical Branch Vital Signs Vital Name Observation Time Observation Value Comments Source Body weight 2019-07-06 18:21:00 127.007 kg Universi ty [facility] BMI 2019-07-06 18:21:00 49.60 kg/m2 Universi ty [facility] Body weight 2019-07-06 18:21:00 127.007 kg Universi ty of [facility] BMI 2019-07-06 18:21:00 49.60 kg/m2 Universi ty [facility] Body weight 2019-06-08 16:25:00 130.182 kg Universi ty of [facility] BMI 2019-06-08 16:25:00 50.84 kg/m2 Universi ty of [facility] Body weight 2019-05-10 20:53:00 130.182 kg Universi ty of [facility] BMI 2019-05-10 20:53:00 50.84 kg/m2 Universi ty of [facility] Body weight 2018-12-02 20:41:00 130.182 kg Universi ty [facility] BMI 2018-12-02 20:41:00 50.84 kg/m2 Universi ty of [place] [facility] Body weight 2018-11-04 16:27:00 130.182 kg Universi ty [facility] [place] [facility] BMI 2018-11-04 16:27:00 50.84 kg/m2 [facility] [place] [facility] Body weight 2018-10-27 20:33:00 130.182 kg [facility] [place] [facility] BMI 2018-10-27 20:33:00 50.84 kg/m2 [facility] [place] [facility] Procedures Procedure Date / Time Performed Performing Clinician Sourc e OU SPECTRALIS DEC 20192019-07-06 00:00:00 Yanelis Nash [facility] [place], BOTH EYES Medical Branch DISCLOSURE AND 2019-06-08 05:01:00 Doctor Unassigned, No [facility] CONSENT, MEDICAL AND Name Medical Bra [facility] SURGICAL PROCEDURES CONSENT/REFUSAL FOR 2019-05-10 20:29:07 Doctor Unassigned, No [facility] DIAGNOSIS AND Name Medical Branch TREATMENT ASSIGNMENT OF BENEFITS 2019-05-10 20:28:49 Doctor Unassigned, No [facility] Name Medical Branch DISCLOSURE AND 2018-12-02 05:01:00 Doctor Unassigned, No [facility] CONSENT, MEDICAL AND Name Medical Bra [facility] SURGICAL PROCEDURES DISCLOSURE AND 2018-11-04 05:01:00 Doctor Unassigned, No [facility] CONSENT, MEDICAL AND Name Medical Bra [facility] SURGICAL PROCEDURES OU SPECTRALIS DEC 20182018-10-27 00:00:00 Yanelis Nash [facility] [place], BOTH EYES Medical Branch Encounters Start End Encounter Admission Attending Care Care Encounter Source Date/Time Date/Time Type Type Clinicians Facility Department ID 2020-07-12 Inpatient ELIZABETH Oneal OUTD [id number] [facility] 10:00:[id number] [facility] 2020-07-05 Inpatient YELENA HowardU OUTD [id number] [facility] 11:00:[address] [facility] 2020-06-25 2020-06-25 Outpatient R [facility] [id number] Univers 09:40:00 09:40:00 [id number] ity [facility] 2020-06-05 2020-06-05 Patient Raman [facility] [id number] Univers 00:00:00 00:00:00 Outreach Jason PRIMARY [id number] [facility] [id number] [id number] [place] [address] [place] [address] 2020-06-05 2020-06-05 Patient Raman INROCHELLE [id number] 00:00:00 00:00:00 Outreach Jason PRIMARY [id number] Tan CARE [id number] PAVILLION [id number] 388 2019-09-28 2019-09-28 Outpatient R FATEMEH MILLER [facility] [id number] Univers 13:15:00 13:15:00 [facility] [id number] [facility]28 2019-09-28 Outpatient R FATEMEH MILLER [facility] [id number] Univers 13:15:00 13:15:00 [facility] 2019-09-13 2019-09-13 Outpatient R DELBERT [facility] [id number] Univers 14:15:00 14:15:00 PREETI [facility] 2019-09-07 2019-09-07 Outpatient R FATEMEH MILLER [facility] [id number] Univers 09:30:00 09:30:00 LEONARD [id number] [facility] 2019-09-07 2019-09-07 Outpatient R FATEMEH MILLER [facility] [id number] Univers 09:30:00 09:30:00 [facility] 2019-07-06 2019-07-06 Office Fatemeh Miller [facility] [id number] Univers 13:09:12 14:08:15 Visit Leonard Gudino MULTISPEC [id number] itravi [facility] [id number] [id number] [facility] AND [address] [facility] 2019-07-06 2019-07-06 Office Fatemeh Miller INROCHELLE [id number] 13:09:12 14:08:15 Visit Leonard Gudino MULTISPEC [id number] IALTY [id number] CENTER [id number] AND RASHID [facility] 2019-07-06 2019-07-06 Outpatient R FATEMEH MILLER [facility] [id number] Univers 13:15:00 13:15:00 LEONARD ity [facility] 2019-07-06 2019-07-06 [facility] [id number] Univers 10:00:00 10:00:00 LEONARD [id number] ity [facility] 2019-07-06 2019-07-06 [facility] [id number] Univers 10:00:00 10:00:00 LEONARD ity [facility] 2019-06-08 2019-06-08 [facility] [id number] Univers 10:45:00 10:45:00 MARCELLFE ity [facility] 2019-06-08 2019-06-08 [facility] [id number] Univers 10:06:11 10:21:11 Visit Leonard Shahab SANCHEZPEC 350.1.13.10 ity [place] [phone] [facility] AND RASHID [address] [facility] 2019-06-08 2019-06-08 Orders Doctor DESTINY [id number] Univers 00:00:00 00:00:00 Only Unassigned, BENNETT 350.1.13.10 ity of [place] Ii [facility] 4.2.7.2.686 Donnie as [phone] [facility] 009 Branch 2019-05-10 2019-05-10 Imm/Inj BETITO Bae [id number] Univers 14:29:50 15:49:40 Visit Leonard Gudino Y 350.1.13.10 i ty of NATIONAL 4.2.7.2.686 Donnie as BANK [id number] [facility] BLDG. 378 Branch 2019-05-10 2019-05-10 Orders Doctor DESTINY 1.2.840.114 [id number] Univers 00:00:00 00:00:00 Only Unassigned, BENNETT 350.1.13.10 ity of [place] Ii HOSPITAL 4.2.7.2.686 Donnie as [id number] [address] 2018-12-02 2018-12-02 Imm/Inj [facility] [id number] Univers 15:18:13 16:21:42 Visit Leonard Gudino MULTISPEC [id number] ity [place] [id number] [address] [facility] 2018-12-02 2018-12-02 Orders Doctor DESTINY [id number] Univers 00:00:00 00:00:00 Only Unassigned, BENNETT 350.1.13.10 ity of [place] Ii HOSPITAL [id number] Donnie as [id number] [address] 2018-11-04 2018-11-04 Imm/Inj [facility] [id number] Univers 11:09:59 11:45:42 Visit Marcelltyronfe Shahab [facility] [id number] [place] [id number] [address] [facility] 2018-11-04 2018-11-04 Orders Doctor DESTINY 1.2.840.114 [id number] Univers 00:00:00 00:00:00 Only Unassigned, BENNETT 350.1.13.10 ity of [place] Ii HOSPITAL 4.2.7.2.686 Donnie as [phone] [address] 2018-10-27 2018-10-27 Office [facility] [id number] Univers 15:25:15 16:23:45 Visit Leonard Gudino HEALTH 350.1.13.10 i ty [place]2.[place] [id number] [place] [address] Branch Results Test Description Test Time Test Comments Results Result Sourc e Comments OU SPECTRALIS DEC 20192019-07-06 OD - slightly Univ ersity of [place], BOTH EYES 00:00:00 altered foveal Donnie as Medical contour but no Branch macular hole, no IRF/SRFOS: no fluid OU SPECTRALIS DEC 20192019-07-06 OD - slightly Univ ersity of [place], BOTH EYES 00:00:00 altered foveal Donnie as Medical contour but no Branch macular hole, no IRF/SRFOS: no fluid OU SPECTRALIS DEC 20182018-10-27 OD - slightly Univ ersity of [place], BOTH EYES 00:00:00 altered foveal Donnie as Medical contour but no Branch macular hole, no IRF/SRFOS - ERM, significant increase in IRF involving the foveal OU SPECTRALIS DEC 20182018-10-27 OD - slightly Univ ersity of [place], BOTH EYES 00:00:00 altered foveal Donnie as Medical contour but no Branch macular hole, no IRF/SRFOS - ERM, significant increase in IRF involving the foveal
[2021-03-05] MEDS ORDERED: NA CHLORIDE 0.9% 1,000 ML ONE (04:23)
[2021-03-05 04:27] LABS: Absolute Lymphocytes (CBC) 1.2 K/uL (0.7-4.9); Basophils % 0.3 % (0-1.3); Hematocrit 42.4 % (36.0-45.0); Lymphocytes % 11.7 % (15.3-44.8); MPV 8.1 fL (7.6-11.3); RBC Red Blood Cell Count 4.87 M/uL (3.86-4.86)
[2021-03-05 04:40] LABS: Protime INR 4.3
[2021-03-05 04:43] LABS: Albumin 3.7 g/dL (3.4-5.0); Bilirubin Direct 0.1 mg/dL (0-0.2); Bilirubin Total 0.4 mg/dL (0.2-1.0); Potassium 3.1 mmol/L (3.5-5.1); Protein, Total 7.6 g/dL (6.4-8.2)
[2021-03-05] MEDS ORDERED: ONDANSETRON 4 MG/2 ML VIAL ONE (04:43)
[2021-03-05] MEDS ORDERED: FAMOTIDINE 20 MG/2 ML VIAL IV ONE (04:43)
[2021-03-05] MEDS ORDERED: MORPHINE 4 MG/ML SYR ONE (04:43)
[2021-03-05 06:43] LABS: Urine Blood Negative (Negative); Urine Glucose Negative (Negative); Urine Protein Negative (Negative); Urine Specific Gravity 1.015 (1.005-1.030)
--- NOTE | 2021-03-05 06:49 | ER ---
Nurse's Notes [facility] Name: Patricia Esteban Age: 60 yrs Sex: Female : 1960 Arrival Date: 03/04/2021 Time: 23:50 Bed 15 Private MD: Diagnosis: Bowel Obstruction;Coagulopathy Presentation: 03/04 23:58 Chief complaint: Patient states: abd pain. Coronavirus screen: Vaccine status: Patient da3 reports receiving the 2nd dose of the covid vaccine. Ebola Screen: No symptoms or risks identified at this time. Risk Assessment: Do you want to hurt yourself or someone else? Patient reports no desire to harm self or others. 23:58 Method Of Arrival: Ambulatory da3 23:58 Acuity: TASNEEM 3 da3 03/05 09:06 Initial Sepsis Screen: Does the patient meet any 2 criteria? No. Patient's initial jd3 sepsis screen is negative. Does the patient have a suspected source of infection? No. Patient's initial sepsis screen is negative. Onset of symptoms was March 05, 2021. Triage Assessment: 00:03 General: Appears in no apparent distress. uncomfortable, Behavior is calm, cooperative, da3 appropriate for age. 00:03 Pain: Complains of pain in abdomen Pain currently is 6 out of 10 on a pain scale. da3 Historical: - Allergies: 00:01 No Known Allergies; da3 - PMHx: 00:02 blood clots; Hypertensive disorder; hernia; da3 - Immunization history:: Adult Immunizations unknown. - Social history:: Smoking status: unknown. - Coronavirus screen:: The patient has NOT traveled to [place] in the past 14 days. Screenin:01 Abuse screen: Denies threats or abuse. Nutritional screening: No deficits noted. bb Tuberculosis screening: No symptoms or risk factors identified. Fall Risk None identified. Assessment: 05:01 General: Appears in no apparent distress. uncomfortable, obese, Behavior is calm, bb cooperative. Pain: Complains of pain in abdomen. Neuro: Level of Consciousness is awake, alert, obeys commands, Oriented to person, place, time, situation. Cardiovascular: Capillary refill < 3 seconds Patient's skin is warm and dry. Respiratory: Respiratory effort is even, unlabored, Respiratory pattern is regular. GI: Bowel sounds present X 4 quads. Abd is soft X 4 quads Reports lower abdominal pain, vomiting. Derm: Skin is pink, warm \\T\\ dry. Musculoskeletal: Circulation, motion, and sensation intact. 08:00 General: Appears in no apparent distress. uncomfortable, Behavior is calm, cooperative, jd3 appropriate for age. Pain: Complains of pain in abdomen. Neuro: Neuro: Level of Consciousness is awake, alert, obeys commands, Oriented to person, place, time, situation. Cardiovascular: Denies chest pain, Capillary refill < 3 seconds Patient's skin is warm and dry. Respiratory: Airway is patent Respiratory effort is even, unlabored, Respiratory pattern is regular, symmetrical. GI: No signs and/or symptoms were reported involving the gastrointestinal system. : No signs and/or symptoms were reported regarding the genitourinary system. EENT: No signs and/or symptoms were reported regarding the EENT system. Derm: Skin is intact, Skin is dry, Skin is normal, Skin temperature is warm. Musculoskeletal: Circulation, motion, and sensation intact. Range of motion: intact in all extremities. 09:04 Reassessment: Patient appears in no apparent distress at this time. No changes from jd3 previously documented assessment. Patient and/or family updated on plan of care and expected duration. Pain level reassessed. Patient is alert, oriented x 3, equal unlabored respirations, skin warm/dry/pink. 10:20 Reassessment: Patient appears in no apparent distress at this time. Patient and/or jd3 family updated on plan of care and expected duration. Pain level reassessed. Patient is alert, oriented x 3, equal unlabored respirations, skin warm/dry/pink. report given to Janet MO. Vital Signs: 03/04 23:58 BP 121 / 71; Pulse 82; Resp 22; Temp 97.7; Pulse Ox 98% on R/A; da3 03/05 06:27 BP 109 / 64; Pulse 66; Resp 20; Pulse Ox 100% on R/A; mw2 09:04 BP 123 / 74; Pulse 59; Resp 17 S; Pulse Ox 95% on R/A; jd3 10:21 BP 104 / 64; Pulse 64; Resp 18 S; Pulse Ox 95% on R/A; jd3 ED Course: 03/04 23:50 Patient arrived in ED. bp1 03/05 00:01 Triage completed. da3 03:17 Abundio Rm MD is Attending Physician. mh7 04:16 Melanie Reid, RN is Primary Nurse. bb 04:21 Inserted saline lock: 22 gauge in right forearm, using aseptic technique. Blood ds4 collected. 04:53 CT Abd/Pelvis - IV Contrast Only In Process Unspecified. EDMS 04:58 CBC with Diff Sent. bb 04:58 Basic Metabolic Panel Sent. bb 05:01 Patient has correct armband on for positive identification. Bed in low position. Call bb light in reach. 05:31 Warm blanket given. mw2 05:32 Door closed. Noise minimized. Lights dimmed. mw2 06:47 Marcelo Swenson DO is Hospitalizing Provider. mh7 08:58 SARS-COV-2 RT PCR (Document "Date of Onset" if Symptomatic) Sent. al4 09:06 Arm band placed on. jd3 10:20 No provider procedures requiring assistance completed. Patient admitted, IV remains in jd3 place. Administered Medications: 04:50 Drug: NS 0.9% 1000 ml Route: IV; Rate: 1000 ml; Site: right forearm; bb 05:45 Follow up: IV Status: Completed infusion; IV Intake: 1000ml bb 04:51 Drug: Zofran (Ondansetron) 4 mg Route: IVP; Site: right forearm; bb 06:38 Follow up: Response: No adverse reaction bb 04:57 Drug: morphine 4 mg Route: IVP; Site: right forearm; bb 06:38 Follow up: Response: No adverse reaction; Pain is decreased; RASS: Alert and Calm (0) bb 04:58 Drug: Pepcid (famotidine) 20 mg Route: IVP; Site: right forearm; bb 06:38 Follow up: Response: No adverse reaction bb 06:37 Drug: morphine 4 mg {Note: RASS 0.} Route: IVP; Site: right forearm; bb 07:30 Follow up: Response: No adverse reaction; RASS: Alert and Calm (0) jd3 07:39 Drug: Zosyn (piperacillin-tazobactam) 3.375 grams Route: IVPB; Infused Over: 60 mins; jd3 Site: right forearm; 08:30 Follow up: Response: No adverse reaction; IV Status: Completed infusion jd3 09:02 Drug: D5-1/2 NS with KCl 20 mEq/L 1000 ml Route: IV; Rate: 100 ml/hr; Site: right jd3 forearm; 10:00 Follow up: Response: No adverse reaction; IV Status: Infusion continued upon admission jd3 09:03 Drug: Potassium Chloride 20 mEq Route: IV; Rate: per protocol; Site: right forearm; jd3 10:00 Follow up: Response: No adverse reaction; IV Status: Infusion continued upon admission jd3 Intake: 05:45 IV: 1000ml; Total: 1000ml. bb Outcome: 06:48 Decision to Hospitalize by Provider. amaury 10:20 Admitted to Tele accompanied by tech, via wheelchair, room 217, with chart, Report jd3 called to Janet MO 10:20 Condition: stable 10:20 Instructed on the need for admit, Demonstrated understanding of instructions. 10:55 Patient left the ED. [place] Signatures: Dispatcher [employer] Melanie Rueda, RN CHELY bb Pepito Reeves ds4 Jemal Britt RN RN Ryan De Jesus 2 Val Kelly Maurice, MD MD 7 Jamie Luo, RN RN da3 Freddy [facility]mont
--- NOTE | 2021-03-05 06:49 | EDPHYS ---
Physician Documentation [facility] Name: Patricia Esteban Age: 60 yrs Sex: Female : 1960 Arrival Date: 03/04/2021 Time: 23:50 Bed 15 Private MD: ED Physician Abundio Rm HPI: 03/05 03:34 This 60 yrs old Female presents to ER via Ambulatory with complaints of Abd Pain > 50 mh7 y/o. 03:34 The patient presents with abdominal pain that is diffuse. Onset: The symptoms/episode mh7 began/occurred last night, at 17:30. The symptoms do not radiate. Associated signs and symptoms: Pertinent positives: nausea and vomiting, dysuria, Pertinent negatives: anorexia, blood in stools, chest pain, constipation, diarrhea, fever, headache, hematuria, palpitations, shortness of breath, vaginal discharge, vomiting blood. The symptoms are described as intermittent, vague, waxing/waning. Modifying factors: The symptoms are alleviated by nothing, the symptoms are aggravated by nothing. Severity of pain: At its worst the pain was moderate last night, in the emergency department the pain is unchanged. Historical: - Allergies: 00:01 No Known Allergies; da3 - PMHx: 00:02 blood clots; Hypertensive disorder; hernia; da3 - Immunization history:: Adult Immunizations unknown. - Social history:: Smoking status: unknown. - Coronavirus screen:: The patient has NOT traveled to [place] in the past 14 days. ROS: 03:34 Constitutional: Negative for fever, chills, and weight loss, Eyes: Negative for injury, mh7 pain, redness, and discharge, ENT: Negative for injury, pain, and discharge, Neck: Negative for injury, pain, and swelling, Cardiovascular: Negative for chest pain, palpitations, and edema, Respiratory: Negative for shortness of breath, cough, wheezing, and pleuritic chest pain, Back: Negative for injury and pain, : Negative for injury, bleeding, discharge, and swelling, MS/Extremity: Negative for injury and deformity, Skin: Negative for injury, rash, and discoloration, Neuro: Negative for headache, weakness, numbness, tingling, and seizure, Psych: Negative for depression, anxiety, suicide ideation, homicidal ideation, and hallucinations, Allergy/Immunology: Negative for hives, rash, and allergies, Endocrine: Negative for neck swelling, polydipsia, polyuria, polyphagia, and marked weight changes, Hematologic/Lymphatic: Negative for swollen nodes, abnormal bleeding, and unusual bruising. Exam: 03:36 Constitutional: This is a well developed, well nourished patient who is awake, alert, mh7 and in no acute distress. Head/Face: Normocephalic, atraumatic. Eyes: Pupils equal round and reactive to light, extra-ocular motions intact. Lids and lashes normal. Conjunctiva and sclera are non-icteric and not injected. Cornea within normal limits. Periorbital areas with no swelling, redness, or edema. Neck: Trachea midline, no thyromegaly or masses palpated, and no cervical lymphadenopathy. Supple, full range of motion without nuchal rigidity, or vertebral point tenderness. No Meningismus. Chest/axilla: Normal chest wall appearance and motion. Nontender with no deformity. No lesions are appreciated. Cardiovascular: Regular rate and rhythm with a normal S1 and S2. No gallops, murmurs, or rubs. Normal PMI, no JVD. No pulse deficits. Respiratory: Lungs have equal breath sounds bilaterally, clear to auscultation and percussion. No rales, rhonchi or wheezes noted. No increased work of breathing, no retractions or nasal flaring. 03:36 Back: No spinal tenderness. No costovertebral tenderness. Full range of motion. Skin: Warm, dry with normal turgor. Normal color with no rashes, no lesions, and no evidence of cellulitis. MS/ Extremity: Pulses equal, no cyanosis. Neurovascular intact. Full, normal range of motion. Neuro: Awake and alert, GCS 15, oriented to person, place, time, and situation. Cranial nerves II-XII grossly intact. Motor strength 5/5 in all extremities. Sensory grossly intact. Cerebellar exam normal. Normal gait. Psych: Awake, alert, with orientation to person, place and time. Behavior, mood, and affect are within normal limits. 03:36 Abdomen/GI: Inspection: obese Bowel sounds: normal, in all quadrants, Palpation: moderate abdominal tenderness, in all quadrants, mass, is not appreciated, rebound tenderness, is not appreciated, voluntary guarding, is not appreciated, involuntary guarding, is not appreciated, no appreciated organomegaly, Rectal exam: the exam is deferred, because of patient request, Indicators: McBurney's point is not tender, Finnegan's sign is negative, Rovsing's sign is negative, Obturator sign is negative, Psoas sign is negative, Liver: no appreciated palpable abnormalities, Hernia: noted in the umbilical area. Vital Signs: 03/04 23:58 BP 121 / 71; Pulse 82; Resp 22; Temp 97.7; Pulse Ox 98% on R/A; da3 03/05 06:27 BP 109 / 64; Pulse 66; Resp 20; Pulse Ox 100% on R/A; mw2 09:04 BP 123 / 74; Pulse 59; Resp 17 S; Pulse Ox 95% on R/A; jd3 10:21 BP 104 / 64; Pulse 64; Resp 18 S; Pulse Ox 95% on R/A; jd3 MDM: 06:39 Physician consultation: Alexandro Bunch MD was contacted at 06:30, regarding patient's mh7 condition, and will see patient in inpatient room. 06:46 Differential diagnosis: bowel obstruction, Cholelithiasis, diverticulitis, gastritis, mh7 gastroesophageal reflux disease, non-specific abd pain, pancreatitis, Peptic Ulcer Disease, Ureterolithiasis, urinary tract infection. Data reviewed: vital signs, nurses notes, lab test result(s), CBC, electrolytes, EKG, radiologic studies. Data interpreted: Pulse oximetry: on room air is 100 %. Interpretation: normal. Counseling: I had a detailed discussion with the patient and/or guardian regarding: the historical points, exam findings, and any diagnostic results supporting the discharge/admit diagnosis, lab results, radiology results, the need for further work-up and treatment in the hospital. Response to treatment: the patient's symptoms have mildly improved after treatment. 06:48 Patient medically screened. mh7 03/05 03:04 Order name: Basic Metabolic Panel tw5 03/05 03:04 Order name: CBC with Diff tw5 03/05 03:04 Order name: Hepatic Function; Complete Time: 05:17 tw5 03/05 03:04 Order name: Lipase; Complete Time: 05:17 tw5 03/05 03:04 Order name: Basic Metabolic Panel; Complete Time: 05:17 EDMS 03/05 03:04 Order name: CBC with Automated Diff; Complete Time: 05:17 EDMS 03/05 03:34 Order name: Protime (+inr); Complete Time: 05:17 7 03/05 03:34 Order name: Ptt, Activated; Complete Time: 05:17 7 03/05 06:39 Order name: CREATININE WHOLE BLOOD; Complete Time: 06:45 EDMS 03/05 06:42 Order name: Urine Dipstick-Ancillary; Complete Time: 06:45 EDMS 03/05 06:44 Order name: Urine Culture 2 03/05 06:44 Order name: Urine Microscopic Only [facility] 03/05 08:50 Order name: SARS-COV-2 RT PCR (Document "Date of Onset" if Symptomatic) 03/05 10:01 Order name: SARS-COV-2 RT PCR [facility] 03/05 03:04 Order name: IV Saline Lock; Complete Time: 04:17 tw5 03/05 03:04 Order name: Labs collected and sent; Complete Time: 04:17 tw5 03/05 03:34 Order name: Urine Dipstick-Ancillary (obtain specimen); Complete Time: 06:39 7 03/05 03:34 Order name: EKG; Complete Time: 03:34 7 03/05 03:34 Order name: EKG - Nurse/Tech; Complete Time: 05:31 7 03/05 03:34 Order name: CT Abd/Pelvis - IV Contrast Only [facility] 03/05 06:39 Order name: NPO; Complete Time: 07:07 mh7 Administered Medications: 04:50 Drug: NS 0.9% 1000 ml Route: IV; Rate: 1000 ml; Site: right forearm; bb 05:45 Follow up: IV Status: Completed infusion; IV Intake: 1000ml bb 04:51 Drug: Zofran (Ondansetron) 4 mg Route: IVP; Site: right forearm; bb 06:38 Follow up: Response: No adverse reaction bb 04:57 Drug: morphine 4 mg Route: IVP; Site: right forearm; bb 06:38 Follow up: Response: No adverse reaction; Pain is decreased; RASS: Alert and Calm (0) bb 04:58 Drug: Pepcid (famotidine) 20 mg Route: IVP; Site: right forearm; bb 06:38 Follow up: Response: No adverse reaction bb 06:37 Drug: morphine 4 mg {Note: RASS 0.} Route: IVP; Site: right forearm; 07:30 Follow up: Response: No adverse reaction; RASS: Alert and Calm (0) j 07:39 Drug: Zosyn (piperacillin-tazobactam) 3.375 grams Route: IVPB; Infused Over: 60 mins; jd3 Site: right forearm; 08:30 Follow up: Response: No adverse reaction; IV Status: Completed infusion jd3 09:02 Drug: D5-1/2 NS with KCl 20 mEq/L 1000 ml Route: IV; Rate: 100 ml/hr; Site: right jd3 forearm; 10:00 Follow up: Response: No adverse reaction; IV Status: Infusion continued upon admission jd3 09:03 Drug: Potassium Chloride 20 mEq Route: IV; Rate: per protocol; Site: right forearm; jd3 10:00 Follow up: Response: No adverse reaction; IV Status: Infusion continued upon admission jd3 Disposition Summary: 03/05/21 06:48 Hospitalization Ordered Hospitalization Status: Inpatient Admission [facility] Provider: Marcelo Swenson [facility] Condition: Stable [facility] Problem: new [facility] Symptoms: have improved [facility] Bed/Room Type: Standard [facility] Room Assignment: 217(03/05/21 09:52) bd Diagnosis - Bowel Obstruction [facility] - Coagulopathy [facility] Forms: - Medication Reconciliation Form [facility] - SBAR form [facility] Signatures: Dispatcher [employer] EDEileen Hammer Brenda, RN RN bb Davies, Jonathon, RN RN jd3 Holmes, Maurice, MD MD [facility] Jamie Luo RN RN chase3 Cheryl Gold tw5 Corrections: (The following items were deleted from the chart) 09:52 06:48 [facility] bd
[2021-03-05] MEDS ORDERED: NA CHLORIDE 0.9% 100 ML ONE (06:57)
[2021-03-05] MEDS ORDERED: KCL 20 MEQ/100 mL IVPB 20 MEQ/100 ML BAG IV ONE (06:57)
[2021-03-05] MEDS ORDERED: PIPERACIL/TAZO 3.375 GM VIAL IV ONE (06:58)
[2021-03-05 08:18] LABS: Urine Bacteria <20 /HPF (<20); Urine RBC <5 /HPF (NONE SEEN)
[2021-03-05] MEDS ORDERED: ACETAMINOPHEN 500 MG TAB PO PRN (08:51)
[2021-03-05] MEDS ORDERED: ACETAMINOPHEN 650MG/RECT SUPP PR PRN (08:51)
[2021-03-05] MEDS ORDERED: HYDRALAZINE HCL 20 MG/ML VIAL IV PRN (08:51)
[2021-03-05] MEDS ORDERED: D5.45NS W/KCL 20MEQ 1,000 ML IV ONE (08:55)
[2021-03-05] MEDS: PIPER TAZO 3.375 GM in NA CHLORIDE 0.9% 100 ML IV SCH ×2 (09:00→16:34)
[2021-03-05] MEDS ORDERED: VITAMIN K (ADULT) 10 MG/ML SQ ONE (09:00)
[2021-03-05] MEDS: MORPHINE 2 MG/ML SYR IV PRN ×3 (09:03→21:34)
--- NOTE | 2021-03-05 09:20 | CON ---
Date of Consultation: 03/05/2021 Reason For Consultation: Incarcerated umbilical hernia. History Of Present Illness: The patient is a 60-year-old female, who presents to the emergency room with acute onset of abdominal pain associated with a mass that is not reducible and some mild nausea and vomiting. Her last bowel movement was yesterday and she did pass some gas last night. She came to the emergency room, was evaluated and found to have an incarcerated umbilical hernia. She does woods ve a history of blood clots and PE and she is on Coumadin. She is awake, alert, and oriented x3. No sore throat, runny nose, cough, headaches, or dizziness. No chest pain. No fever or chills. Review of Systems: Otherwise unremarkable. Past Medical History: Morbid obesity, DVT, PE, hypertension. Past Surgical History: D and C. Allergies: NONE. Social History: The patient denies smoking or drinking. Family History: Noncontributory. Physical Examination: Vital Signs: Stable. She is afebrile. General: She is awake, alert, and oriented x3. Head And Neck: Cranial nerves 2 through 12 are grossly within normal limits. No neck masses. No JV D. Throat clear. Neck is supple. Chest: Clear. Heart: S1, S2. Abdomen: Soft, nondistended. Positive bowel sounds. In the periumbilical region, there is a palpab le mass not reducible. There is no tense red tissue there nor is there significant erythema and is m inimally tender. There is no evidence of any peritonitis in the abdomen. Extremities: Adequately perfused. Nontender. Neuro: Nonfocal. Laboratory Data: Reviewed. She has a white count of 10.2 with a left shift. INR is 4.3. Chemistry reviewed, essentially unremarkable. CT of the abdomen and pelvis reviewed and she had an incarcerat ed umbilical hernia with middle of the transverse colon being inside of it. There are no ischemic ch anges noted on the CAT scan. The patient also has cholelithiasis, but no evidence of cholecystitis. The small bowel and stomach are not dilated. Assessment: A 60-year-old female with multiple medical problems including history of pulmonary embol ism and deep venous thrombosis on anticoagulation with an incarcerated umbilical hernia. Recommendations: At this time, the patient needs her INR corrected and she probably needs to be brid ged with Lovenox prior to any surgical intervention. Discussed the case in detail with Dr. Swenson. He will consult Dr. Garcia. We will give the patient vitamin K to correct the anticoagulation. Whe n it is clinically appropriate the patient will be started on Lovenox and we will hold the Lovenox ju st prior to surgery and restart it right after surgery. Plan of care was discussed with the patient as well. We will await Dr. Garcia's recommendation. In the meantime, the patient needs to be n.p.o ., IV fluid, IV antibiotics, NG tube if she continues to vomit. I will continue to monitor her close ly with serial abdominal exams as well as x-rays if needed. /MODL Voice ID: [id number] Report ID: [id number]
--- NOTE | 2021-03-05 09:37 | P.HP ---
Certification for Inpatient Patient admitted to: Inpatient With expected LOS: >2 Midnights Patient will require the following post-hospital care: None Practitioner: I am a practitioner with admitting privileges, knowledge of patient current condition, hospital course, and medical plan of care. Services: Services provided to patient in accordance with Admission requirements found in Title 42 Section 412.3 of the Code of Federal Regulations Patient History Date of Service: 03/05/21 Primary Care Provider: Suly Irvin NP Reason for admission: Abdominal pain History of Present Illness: 60-year-old female with history of hypertension, hypothyroidism, history of pulmonary embolism on chronic Coumadin. Patient reported nausea, vomiting and abdominal pain. Pain was mainly to the umbilicus. Patient has history of hernia to the umbilicus. Pain persisted. She came to the ER for further evaluation. No evidence of chest pain, shortness of breath. In the ER patient was evaluated. CT scan revealed incarcerated umbilical hernia with transverse colon. INR supratherapeutic above 4. Patient admitted for furt her evaluation. Patient with history of pulmonary embolism in the past. She has been on Coumadin for over 15 years. Allergies No Known Allergies Allergy (Unverified 03/05/21 07:38) - Past Medical/Surgical History Diabetic: No -: Hypertension -: Hypothyroidism -: History of pulmonary embolism on chronic Coumadin -: Gout -: Obesity -: GERD -: D&C -: Urethral dilation Psychosocial/ Personal History: Patient lives at home - Family History Family History: Reviewed- Non-Contributory - Social History Smoking Status: Never smoker Alcohol use: No CD- Drugs: No Caffeine use: No Place of Residence: Home Review of Systems General: As per HPI Eyes: Unremarkable ENT: Unremarkable Respiratory: Unremarkable Cardiovascular: Unremarkable Gastrointestinal: Nausea, Vomiting, Abdominal Pain, As per HPI Musculoskeletal: Unremarkable Integumentary: Unremarkable Neurological: Unremarkable Lymphatics: Unremarkable Physical Examination - Vital Signs Respirations: 17 Pulse Ox (%): 98 - Studies Laboratory Data (last 24 hrs) 03/05/21 04:15: PT 50.2 H, INR 4.30 H*, APTT 54.6 H 03/05/21 04:15: WBC 10.20, Hgb 13.5, Hct 42.4, Plt Count 289 03/05/21 04:15: Sodium 137, Potassium 3.1 L, BUN 17, Creatinine 0.87, Glucose 136 H, Total Bilirubin 0.4, AST 22, ALT 24, Alkaline Phosphatase 98, Lipase 68 L Assessment and Plan - Plan COVID: Negative CT scan AB/Pelvis: Impression- Umbilical hernia containing loops of transverse colon with abrupt transition suggesting some level obstruction. The small bowel and stomach are not dilated. Cholelithiasis Physical Exam: GENERAL: The patient is a well-developed, well-nourished, in no apparent distress. Alert and oriented x3. VITAL SIGNS: Reviewed HEENT: Head is normocephalic and atraumatic. Extraocular muscles are intact. Pupils are equal, round, and reactive to light and accommodation. Nares appeared normal. Mouth is well hydrated and without lesions. Mucous membranes are moist. NECK: Supple. No carotid bruits. No lymphadenopathy or thyromegaly. LUNGS: Clear to auscultation. No crackles or wheezes are heard. HEART: Regular rate and rhythm, no appreciable gallops, rubs, murmurs or extra heart sounds ABDOMEN: Soft, nontender, and nondistended. Positive bowel sounds. No hepatosplenomegaly was noted. EXTREMITIES: Without any cyanosis, clubbing, rash, lesions or peripheral edema. NEUROLOGIC: The patient is oriented to person, place and time. Strength and sensation are grossly intact. Face is symmetric. SKIN: Normal color, turgor and temperature. No ulcerations or rashes noted. Impression: Nausea, abdominal pain secondary to incarcerated umbilical hernia with transverse colon History of pulmonary embolism on chronic anticoagulation therapyCoumadin, supratherapeutic INR Hypertension Hypothyroidism GERD Gout Obesity Plan: Nausea, abdominal pain secondary to incarcerated umbilical hernia with transverse colon: Patient will be admitted for further evaluation and treatment. We will continue IV fluids and IV antibiotic therapyZosyn. Patient remains n.p.o. Case discussed at length with surgery. Patient on Coumadin for history of pulmonary embolism. Patient with supratherapeutic INR. Hold Coumadin. Vitamin K to be given as the patient will require surgery. Case discussed at length with pharmacology for recommendations on vitamin K. Vitamin K 10 mg to be given subcu. Pharmacy will monitor and adjust dose. Will monitor INR daily. Patient will likely require Lovenox if INR less than 2.0. Surgery recommended pulmonology consultation due to her history of pulmonary embolism. Need to consider other medications like Eliquis or Xarelto after surgery instead of Coumadin if the patient is able to afford. Continue monitor closely. Continue with surgery recommendations. History of pulmonary embolism on chronic anticoagulation therapyCoumadin, supratherapeutic INR: Case discussed at length with surgery. Patient to get vitamin K. Discussed with pharmacology. Monitor INR daily. If INR less than 2.0 will start Lovenox at 1 mg/kg subcu twice daily. Pulmonology consulted as r equested by surgery. Need to consider other options of medication like Eliquis or Xarelto after surgery instead of Coumadin if the patient is able to afford. Will discuss further with pulmonology. Will obtain echocardiogram. Hypertension: We will provide IV medication as needed since the patient is n.p.o. Hypothyroidism: Continue IV levothyroxine GERD: We will provide medication Gout: Overall stable Obesity: We will address lifestyle modification education. Code Status: Full Code DVT prophylaxis: SCD for now Advanced Care Planning-30 minutes: Home at discharge Discharge Plan: Home Plan to discharge in: Greater than 2 days - Advance Directives Does patient have a Living Will: No Does patient have a Durable POA for Healthcare: No - Code Status/Comfort Care Code Status Assessed: Yes (Full code) Time Spent Managing Pts Care (In Minutes): 55
--- NOTE | 2021-03-05 10:40 | RAD REPORT ---
EXAM DESCRIPTION: CT - Abdomen Pelvis W Contrast - 03/05/2021 6:49 am CLINICAL HISTORY: Abd pain;Nausea / vomiting TECHNIQUE: Axial computed tomography images of the abdomen and pelvis with intravenous contrast. S agittal and coronal reformatted images were created and reviewed. This CT exam was performed using one or more of the following dose reduction techniques: automated exposure control, adjustment of t he mA and/or kV according to patient size, and/or use of iterative reconstruction technique. COMPARISON: No relevant prior studies available. FINDINGS: Limitations: None. Lung bases: No abnormality noted. Pleural space: No abnormality noted. Heart: No abnormality noted. Mediastinum: No abnormality noted. ABDOMEN: Liver: No abnormality noted. Gallbladder and bile ducts: Numerous small gallstones present. Pancreas: Homogeneous enhancement. No mass, inflammation or ductal dilation. Spleen: No abnormality noted. Adrenals: Visualized portions appear normal. Kidneys and ureters: Very small atrophic right kidney with homogeneous enhancement. Compensato ry enlargement left kidney. No stones or hydronephrosis. Stomach and bowel: Umbilical hernia contains fat and in loop of transverse colon. Proximal tra nsverse and right colon are relatively dilated and contains stool and air with transition at the danielle ia. No intestinal thickening, pneumatosis or inflammation. Small bowel loops are not dilated. S tomach is relatively collapsed. PELVIS: Appendix: No findings to suggest acute appendicitis. Bladder: No filling defects to suggest mass or large stone. No inflammation. Reproductive: No abnormalities noted. ABDOMEN and PELVIS: Intraperitoneal space: No free air. No significant fluid collection. Bones/joints: Degenerative changes present in the spine with levels of lumbar stenosis. No acu te osseous abnormality. Soft tissues: Unremarkable. Vasculature: No abdominal aortic aneurysm. Lymph nodes: No pathologically enlarged lymph nodes. IMPRESSION: 1. Umbilical hernia contains loop of transverse colon with abrupt caliber transition s uggesting some level of obstruction. The small bowel and stomach are not dilated. 2. Cholelithiasis. If there is clinical concern for acute cholecystitis. Sonography recommended . Electronically signed by: Eileen Awad MD 03/05/2021 6:16 AM CLINICAL BIOCHEMICAL GENETICIST Due to temporary technical issues with the PACS/Fluency reporting system, reports are being signed by the in house radiologist without review as a courtesy to ensure prompt reporting. The interpreting r adiologist is fully responsible for the content of the report.
[2021-03-05] MEDS: D5 0.9 NS 1,000 ML IV SCH ×2 (11:35→21:32)
[2021-03-05] MEDS: FOLIC ACID 1 MG in NA CHLORIDE 0.9% 50 ML IV SCH (11:36)
[2021-03-05] MEDS: THIAMINE 200 MG/2 ML INJ IVP SCH (11:40)
--- NOTE | 2021-03-05 12:03 | EKG ---
Test Date: 2021-03-05 Test Time: 05:28:03 Flight Controls Engineer: TONYA MEASUREMENT RESULTS: Intervals: Rate: 63 MN: 184 QRSD: 94 QT: 480 QTc: 491 [place]: P: 15 MN: 184 QRS: -31 T: 3 INTERPRETIVE STATEMENTS: Normal sinus rhythm Left axis deviation Low voltage QRS Possible Anterolateral infarct, age undetermined Abnormal ECG Compared to ECG 08/08/2007 19:27:11 Myocardial infarct finding now present Electronically Signed On 03-05-21 12:02:40 SHAREPOINT ARCHITECT by Jethro Vickers
[2021-03-05 12:22] VITALS: BMI 54.0
[2021-03-05] MEDS: ONDANSETRON 4 MG/2 ML VIAL IV PRN ×2 (14:34→21:33)
--- NOTE | 2021-03-05 16:45 | P.CNS ---
Date of Consult: 03/05/21 Reason for Consult: HXo PE Primary Care Provider: Suly Irvin NP Chief Complaint: Abdominal pain History of Present Illness: Age 60 AW incacerated abdominal hernia, NV and abdominal pain/ Hx of PE last episode 15 yrs ago on warfarin/ Denies SOB 2 Allergies No Known Allergies Allergy (Unverified 03/05/21 07:38) Home Medications: Allopurinol 1 tab PO DAILY 03/05/21 B-Complex with Vitamin C [Super B Complex-Vitamin C] 1 tab PO DAILY 03/05/21 Calcium Carbonate/Vitamin D3 [Calcium 600-Vit D3 500 Softgel] 1 cap PO BID 03/05/21 Cetirizine HCl [Allergy Relief] 10 mg PO DAILY 03/05/21 Cholecalciferol (Vitamin D3) [Vitamin D3] 2,000 unit PO DAILY 03/05/21 Docusate [Colace Cap] 100 mg PO DAILY 03/05/21 L. Acidophilus/L. Rhamnosus [Probiotic 15 Billion Cell Cap] 1 cap PO DAILY 03/05/21 Levothyroxine Sodium [Levothyroxine] 75 mcg PO [id number] 03/05/21 Losartan Potassium 50 mg PO DAILY 03/05/21 Naproxen Sodium 220 mg PO DAILY PRN 03/05/21 Omeprazole 20 mg PO DAILY 03/05/21 Potassium Chloride 20 meq PO BID 03/05/21 Tramadol HCl [Ultram] 50 mg PO BID PRN 03/05/21 Triamterene/Hydrochlorothiazid [Triamterene-Hctz 75-50 mg Tab] 1 tab PO DAILY 03/05/21 Warfarin Sodium 7.5 mg PO DAILY 03/05/21 Zinc 50 mg PO DAILY 03/05/21 acetaZOLAMIDE [Diamox] 250 mg PO BID 03/05/21 - Past Medical/Surgical History Diabetic: No -: Hypertension -: Hypothyroidism -: History of pulmonary embolism on chronic Coumadin -: Gout -: Obesity -: GERD -: D&C -: Urethral dilation Psychosocial/ Personal History: Patient lives at home - Social History Smoking Status: Unknown if ever smoked Alcohol use: No CD- Drugs: No Caffeine use: No Place of Residence: Home Review of Systems 10-point ROS is otherwise unremarkable Gastrointestinal: As per HPI Physical Examination Temp Pulse Resp BP Pulse Ox 97 F 63 16 111/65 96 03/05/21 12:00 03/05/21 12:00 03/05/21 15:06 03/05/21 12:00 03/05/21 15:06 General: Alert, In no apparent distress, Oriented x3 Neck: Supple Respiratory: Clear to auscultation bilaterally Cardiovascular: No edema, Normal S1 S2 Gastrointestinal: Other (Focal tenderness no rebound) Laboratory Data (last 24 hrs) 03/05/21 04:15: PT 50.2 H, INR 4.30 H*, APTT 54.6 H 03/05/21 04:15: WBC 10.20, Hgb 13.5, Hct 42.4, Plt Count 289 03/05/21 04:15: Sodium 137, Potassium 3.1 L, BUN 17, Creatinine 0.87, Glucose 136 H, Total Bilirubin 0.4, AST 22, ALT 24, Alkaline Phosphatase 98, Lipase 68 L - Problems (1) History of pulmonary embolism Current Visit: Yes Status: Acute Plan: Hxof recurrent PE, INR elevated agree with Vit K, Change to IV heparin when INR less than 2 , post op consider Xarelto or Eliquis. low risk for recurrent PE, last episode was 15 yrs ago. LAbs reviewed/ VS and O2 stable
[2021-03-05 17:29] LABS: Urine Appearance CLEAR (Clear); Urine Bilirubin NEGATIVE (Negative); Urine Blood TRACE (Negative); Urine Color YELLOW (Yellow); Urine Glucose NEGATIVE (Negative); Urine Protein NEGATIVE (Negative); Urine Specific Gravity 1.025 (1.005-1.030); Urine Urobilinogen 0.2 mg/dL (0.2-1.0); Urine pH 6.5 (5.0-7.0)
[2021-03-05 17:30] LABS: Urine Microscopic Reflex ORDER UMIC
[2021-03-05 17:55] LABS: Urine Bacteria <20 /HPF (<20); Urine RBC <5 /HPF (NONE SEEN)
[2021-03-05] MEDS: FAMOTIDINE 20 MG/2 ML VIAL IV SCH (21:33)
[2021-03-06] MEDS: PIPER TAZO 3.375 GM in NA CHLORIDE 0.9% 100 ML IV SCH ×3 (00:34→18:46)
[2021-03-06] MEDS: LEVOTHYROXINE SODIUM 100 MCG VIAL IV SCH (05:18)
[2021-03-06] MEDS: MORPHINE 2 MG/ML SYR IV PRN ×2 (05:18→11:03)
--- NOTE | 2021-03-06 05:54 | P.PN ---
Subjective Date of Service: 03/06/21 Primary Care Provider: Suly Irvin NP Chief Complaint: Abdominal pain Subjective: Improving, Doing well Physical Examination - Vital Signs Temperature: 97.4 F Blood Pressure: 129/72 Pulse: 62 Respirations: 19 Pulse Ox (%): 98 Assessment & Plan Discharge Plan: Home Plan to discharge in: Greater than 2 days Physician Review Additional Text: COVID: Negative CT scan AB/Pelvis: Impression- Umbilical hernia containing loops of transverse colon with abrupt transition suggesting some level obstruction. The small bowel and stomach are not dilated. Cholelithiasis Physical Exam: GENERAL: The patient is a well-developed, well-nourished, in no apparent distress. Alert and oriented x3. VITAL SIGNS: Reviewed HEENT: Neck supple LUNGS: Clear to auscultation. No crackles or wheezes are heard. HEART: Regular rate and rhythm, no appreciable gallops, rubs, murmurs or extra heart sounds ABDOMEN: Mild pain to the umbilicus noted but improved. EXTREMITIES: Without any cyanosis, clubbing, rash, lesions or peripheral edema. NEUROLOGIC: The patient is oriented to person, place and time. Strength and se nsation are grossly intact. Face is symmetric. SKIN: Normal color, turgor and temperature. No ulcerations or rashes noted. Impression: Nausea, abdominal pain secondary to incarcerated umbilical hernia with transverse colon History of pulmonary embolism on chronic anticoagulation therapyCoumadin, supratherapeutic INR Hypertension Hypothyroidism GERD Gout Obesity Plan: Nausea, abdominal pain secondary to incarcerated umbilical hernia with transverse colon: Patient doing well at this time. Continue IV fluids and IV antibiotic therapyZosyn. Patient remains n.p.o. INR 1.9. Patient will be started on heparin drip per PE protocol. Spoke with pulmonology and surgery at length. Surgery desires INR to be less than 1.5 before surgery. Recheck INR tomorrow. Anticipate surgery tomorrow. Consider changing over to Eliquis or Xarelto after surgery. No heavy lifting, pushing or pulling. Continue to monitor the lab closely. History of pulmonary embolism on chronic anticoagulation therapyCoumadin, supratherapeutic INR: Case discussed at length with surgery. Patient received vitamin K yesterday. INR now down to 1.9. Patient started on heparin drip per protocol. Recheck INR tomorrow. Proceed with surgery if INR less than 1.5. Consider Eliquis or Xarelto after surgery instead of Coumadin if the patient is able to afford. Hypertension: We will provide IV medication as needed since the patient is n.p.o. Hypothyroidism: Continue IV levothyroxine GERD: Continue medication Gout: Overall stable Obesity: We will address lifestyle modification education. Code Status: Full Code DVT prophylaxis: On heparin at this time Advanced Care Planning-30 minutes: Home at discharge Time Spent Managing Pts Care (In Minutes): 55
[2021-03-06 06:04] LABS: Absolute Lymphocytes (CBC) 1.6 K/uL (0.7-4.9); Basophils % 0.3 % (0-1.3); Hematocrit 38.1 % (36.0-45.0); Lymphocytes % 17.9 % (15.3-44.8); MPV 8.2 fL (7.6-11.3); RBC Red Blood Cell Count 4.45 M/uL (3.86-4.86)
[2021-03-06 06:07] LABS: Protime INR 1.99
[2021-03-06 06:30] LABS: Magnesium 2.3 mg/dL (1.8-2.4); Thyroid Stimulating Hormone 2.95 uIU/mL (0.360-3.740)
[2021-03-06 06:31] LABS: Potassium 2.8 mmol/L (3.5-5.1)
[2021-03-06] MEDS: KCL 20 MEQ/100 mL IVPB 20 MEQ/100 ML BAG IV SCH ×3 (07:00→21:54)
[2021-03-06] MEDS ORDERED: KCL 20 MEQ/100 mL IVPB 300 ML IV ONE (08:30)
[2021-03-06] MEDS: FAMOTIDINE 20 MG/2 ML VIAL IV SCH ×2 (09:00→20:06)
--- NOTE | 2021-03-06 09:56 | PN ---
Date of Progress Note: 03/06/2021 Subjective: The patient is awake, alert, feels little better. No nausea or vomiting. No bowel move ments. Objective: Vital Signs: Stable. Afebrile. Abdomen: The patient is still with incarcerated umbilical hernia, but no peritonitis. INR is 1.99. Assessment: Incarcerated umbilical hernia. The patient with history of pulmonary embolism, on antic oagulation. Recommendation: Dr. Swenson will start the patient on heparin drip and we will stop it tomorrow 4 ashely rs before anticipated surgery followed by laparoscopic repair of incarcerated ventral hernia and at t hat time, depending on the findings and results of surgery, we will restart anticoagulation later in the day. Risks, benefits and alternatives of the surgery was explained in detail to the patient. Sh e understood and agreed. /MODL Voice ID: [id number] Report ID: [id number]
[2021-03-06] MEDS: FOLIC ACID 1 MG in NA CHLORIDE 0.9% 50 ML IV SCH (10:56)
[2021-03-06] MEDS: THIAMINE 200 MG/2 ML INJ IVP SCH (10:59)
[2021-03-06] MEDS ORDERED: MORPHINE 2 MG/ML SYR IV PRN (11:01)
[2021-03-06] MEDS: D5 0.9 NS 1,000 ML IV SCH (11:31)
[2021-03-06] MEDS: HEPARIN/D5W 25,000 UNIT/500 ML BAG IV SCH (14:18)
--- NOTE | 2021-03-06 14:27 | ECHO ---
HEIGHT: 5 ft 3 in WEIGHT: 305 lb 0 oz DATE OF STUDY: 03/06/[address]: Marcelo Swenson DO 2-DIMENSIONAL: YES M.MODE: YES DOPPLER: YES COLOR FLOW: YES TDS: NO PORTABLE: NO DEFINITY: NO BUBBLE STUDY: NO DIAGNOSIS: HISTORY OF PULMONARY EMBOLUS CARDIAC HISTORY: CATHERIZATION: SURGERY: PROSTHETIC VALVE: PACEMAKER: MEASUREMENTS (cm) DIASTOLIC (NORMALS) SYSTOLIC (NORMALS) IVSd 0.8 (0.6-1.2) LA Diam 3.9 (1.9-4.0) LVEF 66% LVIDd 5.3 (3.5-5.7) LVIDs 3.4 (2.0-3.5) %FS 36% LVPWd 0.9 (0.6-1.2) Ao Diam 2.7 (2.0-3.7) 2 DIMENSIONAL ASSESSMENT: RIGHT ATRIUM: NORMAL LEFT ATRIUM: NORMAL RIGHT VENTRICLE: NORMAL LEFT VENTRICLE: NORMAL TRICUSPID VALVE: MILD TRICUSPID REGURGITATION MITRAL VALVE: MILD MITRAL REGURGITATION PULMONIC VALVE: NORMAL AORTIC VALVE: NORMAL PERICARDIAL EFFUSION: NONE AORTIC ROOT: NORMAL LEFT VENTRICULAR WALL MOTION: NORMAL. DOPPLER/COLOR FLOW: SEE BELOW. COMMENTS: NORMAL LEFT VENTRICULAR EJECTION FRACTION 60-65%. NORMAL WALL MOTION. MILD MITRAL REGURGITATION. MILD TRICUSPID REGURGITATION. TECHNOLOGIST: FELECIA LOOMIS
[2021-03-06] MEDS: HYDROMORPHONE HCL 1 MG/ML INJ IV PRN (21:53)
[2021-03-07] MEDS: D5 0.9 NS 1,000 ML IV SCH ×2 (00:51→13:29)
[2021-03-07] MEDS: PIPER TAZO 3.375 GM in NA CHLORIDE 0.9% 100 ML IV SCH ×3 (01:57→16:31)
[2021-03-07] MEDS: HEPARIN/D5W 25,000 UNIT/500 ML BAG IV SCH ×2 (02:09→22:21)
[2021-03-07 04:20] LABS: Absolute Lymphocytes (CBC) 1.8 K/uL (0.7-4.9); Basophils % 0.3 % (0-1.3); Hematocrit 37.2 % (36.0-45.0); Lymphocytes % 17.1 % (15.3-44.8); MPV 8.5 fL (7.6-11.3); RBC Red Blood Cell Count 4.32 M/uL (3.86-4.86)
[2021-03-07 04:27] LABS: Protime INR 1.58
[2021-03-07 04:38] LABS: BUN Blood Urea Nitrogen 15 mg/dL (7-18); Bicarbonate 24 mmol/L (21-32); Glucose Level 122 mg/dL (74-106); Magnesium 2.2 mg/dL (1.8-2.4); Potassium 3.1 mmol/L (3.5-5.1); Sodium Level 144 mmol/L (136-145)
--- NOTE | 2021-03-07 06:01 | P.PN ---
Subjective Date of Service: 03/07/21 Primary Care Provider: Suly Irvin NP Chief Complaint: Abdominal pain Subjective: Doing well Physical Examination - Vital Signs Temperature: 97.6 F Blood Pressure: 125/74 Pulse: 57 Respirations: 18 Pulse Ox (%): 96 Assessment & Plan Discharge Plan: Home Plan to discharge in: Greater than 2 days Physician Review Additional Text: COVID: Negative CT scan AB/Pelvis: Impression- Umbilical hernia containing loops of transverse colon with abrupt transition suggesting some level obstruction. The small bowel and stomach are not dilated. Cholelithiasis Physical Exam: GENERAL: The patient is a well-developed, well-nourished, in no apparent distress. Alert and oriented x3. VITAL SIGNS: Reviewed HEENT: Neck supple LUNGS: Clear to auscultation. No crackles or wheezes are heard. HEART: Regular rate and rhythm, no appreciable gallops, rubs, murmurs or extra heart sounds ABDOMEN: Mild pain to the umbilicus noted but improved. EXTREMITIES: Without any cyanosis, clubbing, rash, lesions or peripheral edema. NEUROLOGIC: The patient is oriented to person, place and time. Strength and sensation are grossly intact. Face is symmetric. SKIN: Normal color, turgor and temperature. No ulcerations or rashes noted. Impression: Nausea, abdominal pain secondary to incarcerated umbilical hernia with transverse colon History of pulmonary embolism on chronic anticoagulation therapyCoumadin, supratherapeutic INR Hypertension Hypothyroidism GERD Gout Obesity Plan: Nausea, abdominal pain secondary to incarcerated umbilical hernia with transverse colon: Surgery today. INR 1.5. Patient remains on IV Zosyn. Surgery was scheduled for today but unfortunately there was technical issues in the OR. Therefore surgery will be delayed until Wednesday when the technical issues can be resolved. We will restart heparin drip per protocol. Keep n.p.o. after midnight on Wednesday morning in preparation for surgery. Continue with plan of care. Due to the delay will order PICC line to initiate TPN. History of pulmonary embolism on chronic anticoagulation therapyCoumadin, supratherapeutic INR: Case discussed at length with surgery and pulmonology. INR 1.5. Continue as above. Continue heparin drip. Hold before surgery on Wednesday. Consider Eliquis or Xarelto after surgery instead of Coumadin if the patient is able to afford. Hypertension: Will provide IV medication as needed since the patient is n.p.o. Hypothyroidism: Continue IV levothyroxine GERD: Continue medication Gout: Overall stable Obesity: We will address lifestyle modification education. Code Status: Full Code DVT prophylaxis: On heparin at this time Advanced Care Planning-30 minutes: Home at discharge Time Spent Managing Pts Care (In Minutes): 55
[2021-03-07] MEDS: HYDROMORPHONE HCL 1 MG/ML INJ IV PRN ×4 (06:13→20:44)
[2021-03-07] MEDS: LEVOTHYROXINE SODIUM 100 MCG VIAL IV SCH (06:14)
[2021-03-07] MEDS ORDERED: Ringers Lactate 1,000 ML IV ONE (08:56)
[2021-03-07] MEDS: THIAMINE 200 MG/2 ML INJ IVP SCH (09:00)
[2021-03-07] MEDS: FOLIC ACID 1 MG in NA CHLORIDE 0.9% 50 ML IV SCH (09:00)
[2021-03-07] MEDS: FAMOTIDINE 20 MG/2 ML VIAL IV SCH ×2 (09:00→20:45)
[2021-03-07] MEDS ORDERED: KCL IV SCH (16:00)
[2021-03-07] MEDS ORDERED: NA CHLORIDE 0.9% IV SCH (16:00)
[2021-03-07] MEDS ORDERED: NA CHLORIDE 0.9% 100 ML ONE (16:17)
[2021-03-07] MEDS: ONDANSETRON 4 MG/2 ML VIAL IV PRN (18:52)
--- NOTE | 2021-03-07 22:09 | RAD REPORT ---
EXAM DESCRIPTION: RAD - Chest Single View - 03/07/2021 9:56 pm CLINICAL HISTORY: PICC line Placement COMPARISON: <Comparisons> FINDINGS: Left subclavian approach PICC. It can be seen overlying the expected location of the left brachiocephalic vein. The tip is not clearly visualized. Cardiomegaly. Pulmonary vascular congestion . No consolidative airspace disease. IMPRESSION: Left subclavian approach PICC with tip not visualized, possibly due to underpenetration versus shallow placement.
[2021-03-08] MEDS ORDERED: Magnesium Sulfate 2gm IVPB 2 G/50 ML BAG IV ONE (00:44)
[2021-03-08] MEDS: PIPER TAZO 3.375 GM in NA CHLORIDE 0.9% 100 ML IV SCH ×3 (01:58→17:07)
[2021-03-08 03:08] LABS: Absolute Lymphocytes (CBC) 1.4 K/uL (0.7-4.9); Basophils % 0.4 % (0-1.3); Hematocrit 37.5 % (36.0-45.0); Lymphocytes % 15.5 % (15.3-44.8); MPV 8.2 fL (7.6-11.3); RBC Red Blood Cell Count 4.27 M/uL (3.86-4.86)
[2021-03-08 03:16] LABS: Protime INR 1.31
[2021-03-08 03:24] LABS: BUN Blood Urea Nitrogen 15 mg/dL (7-18); Bicarbonate 23 mmol/L (21-32); Glucose Level 118 mg/dL (74-106); Magnesium 2.5 mg/dL (1.8-2.4); Potassium 3.1 mmol/L (3.5-5.1); Sodium Level 146 mmol/L (136-145)
[2021-03-08] MEDS: D5 0.9 NS 1,000 ML IV SCH (03:31)
[2021-03-08] MEDS: HYDROMORPHONE HCL 1 MG/ML INJ IV PRN ×4 (05:16→21:50)
[2021-03-08] MEDS: ONDANSETRON 4 MG/2 ML VIAL IV PRN ×3 (05:16→21:50)
[2021-03-08] MEDS: LEVOTHYROXINE SODIUM 100 MCG VIAL IV SCH (05:17)
--- NOTE | 2021-03-08 05:50 | P.PN ---
Subjective Date of Service: 03/08/21 Primary Care Provider: Suly Irvin NP Chief Complaint: Abdominal pain Subjective: Doing well Physical Examination - Vital Signs Temperature: 98 F Blood Pressure: 117/56 Pulse: 50 Respirations: 18 Pulse Ox (%): 98 - Studies Microbiology Data (last 24 hrs): 03/05/21 06:38 Clean Catch Urine [place] Count - Final BETWEEN 10,000 & 100,000 CFU/ML 03/05/21 06:38 Clean Catch Urine - Final Escherichia Coli Gram Neg Deepak Assessment & Plan Discharge Plan: Home Plan to discharge in: 48 Hours Physician Review Additional Text: COVID: Negative CT scan AB/Pelvis: Impression- Umbilical hernia containing loops of transverse colon with abrupt transition suggesting some level obstruction. The small bowel and stomach are not dilated. Cholelithiasis Physical Exam: GENERAL: The patient is a well-developed, well-nourished, in no apparent distress. Alert and oriented x3. VITAL SIGNS: Reviewed HEENT: Neck supple LUNGS: Clear to auscultation. No crackles or wheezes are heard. HEART: Regular rate and rhythm, no appreciable gallops, rubs, murmurs or extra heart sounds ABDOMEN: Mild pain to the umbilicus noted but improved. EXTREMITIES: Without any cyanosis, clubbing, rash, lesions or peripheral edema. NEUROLOGIC: The patient is oriented to person, place and time. Strength and sensation are grossly intact. Face is symmetric. SKIN: Normal color, turgor and temperature. No ulcerations or rashes noted. Impression: Nausea, abdominal pain secondary to incarcerated umbilical hernia with transverse colon History of pulmonary embolism on chronic anticoagulation therapyCoumadin, supratherapeutic INR Hypertension Hypothyroidism GERD Gout Obesity Plan: Nausea, abdominal pain secondary to incarcerated umbilical hernia with transverse colon: Surgery has been delayed until Wednesday due to technical issues in the OR. Patient back on heparin drip. Continue IV Zosyn. Pain stable. PICC line in place. Surgery had desired TPN for the patient. Case discussed with dietitian. Dietary recommends to hold off on TPN since surgery will be tomorrow. Will adjust IV fluids today. Will discuss with surgery on plan of care. Patient remains n.p.o. History of pulmonary embolism on chronic anticoagulation therapyCoumadin, supratherapeutic INR: Patient remains on heparin. Case discussed at length with surgery and pulmonology. INR 1.3. Continue as above. Hold heparin before surgery on Wednesday. Consider Eliquis or Xarelto after surgery instead of Coumadin if the patient is able to afford. Hypertension: Will provide IV medication as needed since the patient is n.p.o. Hypothyroidism: Continue IV levothyroxine GERD: Continue medication Gout: Overall stable Obesity: We will address lifestyle modification education. Code Status: Full Code DVT prophylaxis: On heparin at this time Advanced Care Planning-30 minutes: Home at discharge Time Spent Managing Pts Care (In Minutes): 55
[2021-03-08] MEDS ORDERED: NA CHLORIDE 0.9% 50 ML ONE (08:09)
[2021-03-08] MEDS: FAMOTIDINE 20 MG/2 ML VIAL IV SCH ×2 (08:19→20:59)
[2021-03-08] MEDS: THIAMINE 200 MG/2 ML INJ IVP SCH (08:19)
[2021-03-08] MEDS: D5 0.45 NS 1,000 ML IV SCH ×2 (08:20→21:00)
[2021-03-08] MEDS: KCL 20 MEQ/100 mL IVPB 20 MEQ/100 ML BAG IV SCH (08:20)
[2021-03-08] MEDS: FOLIC ACID 1 MG in NA CHLORIDE 0.9% 50 ML IV SCH (08:20)
--- NOTE | 2021-03-08 11:49 | PN ---
Date of Progress Note: 03/08/2021 Subjective: The patient is awake, alert. Minimal nausea, but no vomiting. Passing some gas. Objective: Vital Signs: Stable, afebrile. Abdomen: Soft. Minimal tenderness around the hernia side. There is no redness or tenseness there. Laboratory Data: Reviewed. There is no acidosis. White count is normal. Assessment: Incarcerated umbilical hernia. Plan: We will schedule the patient for laparoscopic repair of incarcerated umbilical hernia tomorrow at 11. We will stop the heparin at 7. /MODL Voice ID: [id number] Report ID: [id number]
--- NOTE | 2021-03-08 18:37 | RAD REPORT ---
EXAM DESCRIPTION: RAD - Chest Single View - 03/07/2021 11:54 pm CLINICAL HISTORY: 1 years Female, PICC placement COMPARISON: Chest radiograph dated 03/07/2021 FINDINGS/IMPRESSION: Left upper extremity PICC terminating in the proximal SVC. No focal lung consolidation. No pleural effusion. No pneumothorax. Cardiomegaly. No acute osseous abnormality. Electronically signed by: Kavin Arrington DO 03/08/2021 12:13 AM [employer] Due to temporary technical issues with the PACS/Fluency reporting system, reports are being signed by the in house radiologists without review as a courtesy to insure prompt reporting. The interpreting radiologist is fully responsible for the content of the report.
[2021-03-08] MEDS: HEPARIN/D5W 25,000 UNIT/500 ML BAG IV SCH (19:15)
[2021-03-08] MEDS ORDERED: KCL 20 MEQ/100 mL IVPB 20 MEQ/100 ML BAG IV SCH (23:45)
[2021-03-09] MEDS: PIPER TAZO 3.375 GM in NA CHLORIDE 0.9% 100 ML IV SCH ×3 (01:52→16:00)
[2021-03-09] MEDS: HYDROMORPHONE HCL 1 MG/ML INJ IV PRN ×4 (01:56→12:40)
[2021-03-09] MEDS: ONDANSETRON 4 MG/2 ML VIAL IV PRN (05:16)
[2021-03-09] MEDS: LEVOTHYROXINE SODIUM 100 MCG VIAL IV SCH (05:18)
[2021-03-09 05:54] LABS: Absolute Lymphocytes (CBC) 2.4 K/uL (0.7-4.9); Basophils % 0.6 % (0-1.3); Hematocrit 35.3 % (36.0-45.0); Lymphocytes % 23.9 % (15.3-44.8); MPV 8.5 fL (7.6-11.3); RBC Red Blood Cell Count 4.01 M/uL (3.86-4.86)
[2021-03-09 05:58] LABS: Protime INR 1.39
[2021-03-09 06:02] LABS: BUN Blood Urea Nitrogen 14 mg/dL (7-18); Bicarbonate 25 mmol/L (21-32); Glucose Level 100 mg/dL (74-106); Magnesium 2.3 mg/dL (1.8-2.4); Potassium 3.3 mmol/L (3.5-5.1); Sodium Level 144 mmol/L (136-145)
--- NOTE | 2021-03-09 06:27 | P.PN ---
Subjective Date of Service: 03/09/21 Primary Care Provider: Suly Irvin NP Chief Complaint: Abdominal pain Subjective: Improving, Doing well Physical Examination - Vital Signs Temperature: 96.9 F Blood Pressure: 120/60 Pulse: 52 Respirations: 18 Pulse Ox (%): 96 Assessment & Plan Discharge Plan: Home Plan to discharge in: Greater than 2 days Physician Review Additional Text: COVID: Negative CT scan AB/Pelvis: Impression- Umbilical hernia containing loops of transverse colon with abrupt transition suggesting some level obstruction. The small bowel and stomach are not dilated. Cholelithiasis Physical Exam: GENERAL: The patient is a well-developed, well-nourished, in no apparent distress. Alert and oriented x3. VITAL SIGNS: Reviewed HEENT: Neck supple LUNGS: Clear to auscultation. No crackles or wheezes are heard. HEART: Regular rate and rhythm, no appreciable gallops, rubs, murmurs or extra heart sounds ABDOMEN: Mild pain to the umbilicus noted but improved. EXTREMITIES: Without any cyanosis, clubbing, rash, lesions or peripheral edema. NEUROLOGIC: The patient is oriented to person, place and time. Strength and se nsation are grossly intact. Face is symmetric. SKIN: Normal color, turgor and temperature. No ulcerations or rashes noted. Impression: Nausea, abdominal pain secondary to incarcerated umbilical hernia with transverse colon History of pulmonary embolism on chronic anticoagulation therapyCoumadin, supratherapeutic INR Hypertension UTI, urine culture positive for E. coli Hypothyroidism GERD Gout Obesity Plan: Nausea, abdominal pain secondary to incarcerated umbilical hernia with transverse colon: Patient has done well. Anticipate surgery today as technical issues in the OR have been resolved. Hold heparin drip prior to surgery. Continue IV Zosyn and IV fluids. Await findings from surgery. Anticipate continued provement over the next 2 to 3 days. I will turn to service over to the hospitalist team tomorrow. I will go plan of care with him. History of pulmonary embolism on chronic anticoagulation therapyCoumadin, supratherapeutic INR: Patient remains on heparin. Case discussed at length with surgery and pulmonology. INR below 1.5 and preparation for surgery. Continue as above. Hold heparin before surgery today. Consider Eliquis or Xarelto after surgery instead of Coumadin if the patient is able to afford. Patient is willing to change. UTI, urine culture positive for E. coli: Urine culture reviewed. Continue IV Zosyn for 7 days this can be transitioned to oral medication after surgery. Currently on day 4. Hypertension: Will provide IV medication as needed since the patient is n.p.o. Restart oral medication once taking oral intake after surgery. Hypothyroidism: Continue IV levothyroxine. This can be transitioned to oral medication once taking oral intake GERD: Continue medication Gout: Overall stable Obesity: Will continue to address lifestyle modification education. Code Status: Full Code DVT prophylaxis: On heparin at this time Advanced Care Planning-30 minutes: Home at discharge Time Spent Managing Pts Care (In Minutes): 55
[2021-03-09] MEDS: KCL 20 MEQ/100 mL IVPB 20 MEQ/100 ML BAG IV SCH ×2 (08:00→10:00)
[2021-03-09] MEDS: FAMOTIDINE 20 MG/2 ML VIAL IV SCH ×2 (08:08→20:55)
[2021-03-09] MEDS: THIAMINE 200 MG/2 ML INJ IVP SCH (08:08)
[2021-03-09] MEDS: FOLIC ACID 1 MG in NA CHLORIDE 0.9% 50 ML IV SCH (09:00)
[2021-03-09] MEDS ORDERED: Ringers Lactate 1,000 ML IV ONE (10:18)
[2021-03-09] MEDS ORDERED: CELECOXIB 100 MG CAPSULE ONE (10:33)
[2021-03-09] MEDS ORDERED: ACETAMINOPHEN 500 MG TAB ONE (10:33)
[2021-03-09] MEDS ORDERED: LIDOCAINE 2% MPF 5 ML VIAL ONE (10:39)
[2021-03-09] MEDS ORDERED: FENTANYL CITR 100 MCG/2 ML ONE ×2 (10:39→11:30)
[2021-03-09] MEDS ORDERED: propofoL 200 MG/20 ML VIAL IV ONE (10:39)
[2021-03-09] MEDS ORDERED: ROCURONIUM 50 MG/5 ML VIAL IV ONE (10:40)
[2021-03-09] MEDS: D5 0.45 NS 1,000 ML IV SCH ×2 (10:40→15:12)
[2021-03-09] MEDS ORDERED: BUPIVACAINE 0.5% Inj,MDV 50 mL VIAL ONE (10:44)
[2021-03-09] MEDS ORDERED: BUPIVACAINE 0.5% PF 10 ML VIAL ONE (10:44)
[2021-03-09] MEDS ORDERED: KETOROLAC 30 MG/ML INJ ONE (11:06)
[2021-03-09] MEDS ORDERED: ONDANSETRON 4 MG/2 ML VIAL ONE ×2 (11:07→12:31)
[2021-03-09] MEDS ORDERED: dexAMETHasone 10 MG/ML VIAL ONE (11:07)
[2021-03-09] MEDS ORDERED: GLYCOPYRROLATE 0.2 MG/ML SYR ONE ×2 (11:13→11:42)
[2021-03-09] MEDS ORDERED: NEOSTIGMINE 1 MG/ML -5 ML ONE (11:43)
--- NOTE | 2021-03-09 12:07 | P.OP ---
Straight Ruling Machine Operator: Steven HYATT Preoperative diagnosis: Incarcerated umbilical hernia Postoperative diagnosis: same Primary procedure: Lap Assisted Repair of Incarcerated Umbilical Hernia Anesthesia: General Estimated blood loss: min Specimen: Hernia sac Findings: as above Complications: None Transferred to: Recovery Room Condition: Good
[2021-03-09] MEDS ORDERED: HYDROMORPHONE HCL 1 MG/ML INJ IV PRN (12:17)
[2021-03-09] MEDS ORDERED: HYDROCODONE/APAP 7.5/325 MG TAB PO PRN (12:17)
--- NOTE | 2021-03-09 13:15 | OP ---
Date of Procedure: 03/09/2021 Surgeon: Alexandro Bunch MD Mosquito Sprayer: OLENA Urban. Preoperative Diagnosis: Incarcerated umbilical hernia. Postoperative Diagnosis: Incarcerated umbilical hernia. Procedure: Laparoscopic-assisted repair of incarcerated umbilical hernia. Estimated Blood Loss: Minimal. Specimen: Hernia sac. Findings: As above. Anesthesia: General. Complications: None. Disposition: The patient tolerated the procedure well, in stable condition, and taken to Recovery in good general condition. Procedure In Detail: The patient was brought to the OR and placed in supine position. General anest hesia began. The patient was prepped and draped in the usual sterile fashion. Marcaine 0.5% infiltr ated and then a midline incision above and below the umbilicus was made. Subcutaneous tissue was div ided. Hernia sac identified and freed from surrounding tissues and carefully opened. There was inca rcerated omentum and transverse colon present in the hernia sac. The colon was healthy. The fascia was opened slightly in order to allow easy reduction of the bowel back into the peritoneal cavity. T he omentum was attached to the hernia site, which was taken down with LigaSure and then a 5 mm trocar was placed in the left upper quadrant. I wanted to evaluate to see if mesh was required for this re pair or not after we primarily closed the hernia defect. Good fascial edges were obtained of the fas hang and the primary closure was done with #2 nylon running. Wound was irrigated. Bleeding was contr olled with cautery and then pneumoperitoneum established. Complete coverage of the hernia defect was accomplished, however, given the size of the patient, it was difficult to have adequate room for man ipulation of the mesh inside plus patient had an incarceration for approximately 5 days and I was con cerned that translocation of bacteria may be a nidus for infection in the mesh. Therefore, I opted n ot to place the mesh and the umbilicus was reattached to the fascia with 2-0 chromic and 2-0 chromic was used to approximate the subcutaneous tissue. Artis were used to close skin. Sterile dressing was applied. The patient was awakened and taken to Recovery in good general condition. /MODL Voice ID: [id number] Report ID: [id number]
[2021-03-09 15:46] LABS: Absolute Lymphocytes (CBC) 0.5 K/uL (0.7-4.9); Basophils % 0.3 % (0-1.3); Hematocrit 38.4 % (36.0-45.0); Lymphocytes % 4.4 % (15.3-44.8); MPV 8.5 fL (7.6-11.3); RBC Red Blood Cell Count 4.35 M/uL (3.86-4.86)
[2021-03-09] MEDS: APIXABAN 5 MG TABLET PO SCH (20:55)
[2021-03-10] MEDS: PIPER TAZO 3.375 GM in NA CHLORIDE 0.9% 100 ML IV SCH ×2 (01:16→10:07)
[2021-03-10] MEDS: D5 0.45 NS 1,000 ML IV SCH (01:16)
[2021-03-10] MEDS: LEVOTHYROXINE SODIUM 100 MCG VIAL IV SCH (06:35)
[2021-03-10 07:57] LABS: Absolute Lymphocytes (CBC) 1.1 K/uL (0.7-4.9); Basophils % 0.9 % (0-1.3); Hematocrit 31.2 % (36.0-45.0); Lymphocytes % 10.2 % (15.3-44.8); RBC Red Blood Cell Count 3.52 M/uL (3.86-4.86)
[2021-03-10 08:15] LABS: Potassium 3.2 mmol/L (3.5-5.1)
[2021-03-10] MEDS: THIAMINE 200 MG/2 ML INJ IVP SCH (10:06)
[2021-03-10] MEDS: APIXABAN 5 MG TABLET PO SCH ×2 (10:06→21:07)
[2021-03-10] MEDS: FOLIC ACID 1 MG in NA CHLORIDE 0.9% 50 ML IV SCH (10:07)
[2021-03-10] MEDS: FAMOTIDINE 20 MG/2 ML VIAL IV SCH (10:07)
--- NOTE | 2021-03-10 12:44 | P.PN ---
Subjective Date of Service: 03/10/21 Primary Care Provider: Suly Irvin NP Chief Complaint: History of DVT Subjective: Improving (Patient is doing very well status post) Patient has had laparoscopic repair of her umbilical hernia doing very well no new complaint Review of Systems 10-point ROS is otherwise unremarkable Physical Examination - Vital Signs Temperature: 97.6 F Blood Pressure: 116/57 Pulse: 59 Respirations: 18 Pulse Ox (%): 100 - Physical Exam General: Alert, In no apparent distress, Oriented x3 Respiratory: Clear to auscultation bilaterally Cardiovascular: No edema, Regular rate/rhythm Assessment & Plan - Problems (Diagnosis) (1) History of pulmonary embolism Current Visit: Yes Status: Acute Plan: Doing much better status post laparoscopic repair of umbilical hernia patient is now on a diet change to p.o. Eliquis possible discharge tomorrow
--- NOTE | 2021-03-10 13:35 | PN ---
Date of Progress Note: 03/10/2021 Subjective: The patient is awake, alert, tolerating liquids, ambulating in the bedroom by herself. Bowels are stable. Afebrile. Her H and H were stable. After surgery, have gone down rachael e of it may be due to dilutional effects of the IV that she received during the surgery, but there is no evidence of any bleeding as far as clinically or in the dressing. Objective: Vital Signs: Stable. She is afebrile. Abdomen: Soft. Dressing is clean, dry, and intact. Please note, the patient had several bowel move ments since surgery. Assessment: Status post laparoscopic-assisted repair of incarcerated umbilical hernia. Recommendations: Advance diet. Discontinue IV fluids. Continue physical therapy, incentive spirome try, and SCDs. Anticoagulation per the medical team, hopefully discharge in 24 to 48 hours. /MODL Voice ID: [id number] Report ID: [id number]
[2021-03-10] MEDS ORDERED: POTASSIUM CL SA 10 MEQ TAB PO ONE (18:00)
[2021-03-10] MEDS ORDERED: PANTOPRAZOLE 40MG TABLET PO ONE (20:42)
[2021-03-10] MEDS ORDERED: acetaZOLAMIDE 250 MG TAB PO SCH (21:00)
[2021-03-10] MEDS ORDERED: ACETAMINOPHEN 500 MG TAB PO PRN (23:44)
[2021-03-11 04:51] LABS: Absolute Lymphocytes (CBC) 1.3 K/uL (0.7-4.9); Basophils % 0.2 % (0-1.3); Hematocrit 31.7 % (36.0-45.0); Lymphocytes % 13.8 % (15.3-44.8); MPV 8.2 fL (7.6-11.3); RBC Red Blood Cell Count 3.61 M/uL (3.86-4.86)
[2021-03-11 04:53] VITALS: BP 101/52; TEMP 98.5
[2021-03-11 05:10] LABS: BUN Blood Urea Nitrogen 11 mg/dL (7-18); Bicarbonate 25 mmol/L (21-32); Glucose Level 87 mg/dL (74-106); Lipase 183 U/L (73-393); Potassium 3.5 mmol/L (3.5-5.1); Sodium Level 146 mmol/L (136-145)
[2021-03-11] MEDS ORDERED: LEVOTHYROXINE SOD 0.075 MG TAB PO SCH (06:30)
[2021-03-11] MEDS ORDERED: POTASSIUM CL SA 10 MEQ TAB PO ONE (09:00)
[2021-03-11] MEDS ORDERED: allopurinoL 300 MG TAB PO SCH (09:00)
[2021-03-11] MEDS ORDERED: LOSARTAN POTASSIUM 50 MG TABLET PO SCH (09:00)
[2021-03-11] MEDS ORDERED: acetaZOLAMIDE 250 MG TAB PO SCH (09:00)
[2021-03-11 09:52] VITALS: O2SAT 100
--- NOTE | 2021-03-11 10:54 | PN ---
Date of Progress Note: 03/11/2021 Subjective: The patient is awake, alert. No complaint. Having bowel movements. Tolerating regular diet. Objective: Vital Signs: Stable. She is afebrile. Abdomen: Benign. Laboratory Data: H and H are stable. Assessment: Status post laparoscopic repair of incarcerated umbilical hernia and the patient with a history of pulmonary embolism. Recommendations: The patient is cleared from Surgery for discharge. She is already on Eliquis and d ischarge instructions given. She is to follow up with me in 1 week. Plan of care discussed with the nursing staff and discharge orders have been written by Dr. Lynch. /MODL Voice ID: [id number] Report ID: [id number]
--- NOTE | 2021-03-12 08:13 | P.PN ---
Subjective Date of Service: 03/10/21 Patient is clinically doing well. Started on a diet. Will advance as tolerated. Continue outpatient follow with General surgery and wound healing. Review of Systems 10-point ROS is otherwise unremarkable Physical Examination - Vital Signs Temperature: 98.5 F Blood Pressure: 101/52 Pulse: 56 Respirations: 17 Pulse Ox (%): 96 - Physical Exam General: Alert, In no apparent distress, Oriented x3 Respiratory: Clear to auscultation bilaterally, Normal air movement Cardiovascular: Regular rate/rhythm, Normal S1 S2, No murmurs Gastrointestinal: Normal bowel sounds, Soft and benign, Non-distended, No tenderness Musculoskeletal: No clubbing, No swelling, No tenderness Neurological: Sensation intact, Cranial nerves 3-12 intact - Studies Medications List Reviewed: Yes Assessment & Plan - Problems (Diagnosis) (1) Incarcerated hernia Status: Acute (2) Status post hernia repair Status: Acute (3) History of pulmonary embolism Status: Acute (4) History of hypertension Status: Acute - Plan Plan: 1. Continue with antibiotics 2. Continue with IV fluids 3. Pain control 4. Out of bed and ambulate 5. Anti coagulation 6. GI and DVT prophylaxis Discharge Plan: Home Plan to discharge in: Greater than 2 days - Advance Directives Does patient have a Living Will: No Does patient have a Durable POA for Healthcare: No - Code Status/Comfort Care Code Status Assessed: Yes Code Status: Full Code Critical Care: No Time Spent Managing PTS Care (In Minutes): 35
--- NOTE | 2021-03-12 08:15 | P.DS ---
Discharge Date: 03/11/21 Primary Care Provider: Suly Irvin NP Disposition: ROUTINE DISCHARGE Discharge Condition: GOOD Reason for Admission: History of DVT - Problems (1) Incarcerated hernia Status: Acute (2) Status post hernia repair Status: Acute (3) History of pulmonary embolism Status: Acute (4) History of hypertension Status: Acute Brief History of Present Illness: Patient is a 60-year-old female with history of hypertension, hy pothyroidism, history of pulmonary embolism on chronic Coumadin. Patient reported nausea, vomiting and abdominal pain. Pain was mainly to the umbilicus. Patient has history of hernia to the umbilicus. Pain persisted. She came to the ER for further evaluation. No evidence of chest pain, shortness of breath. In the ER patient was evaluated. CT scan revealed incarcerated umbilical hernia with transverse colon. INR supratherapeutic above 4. Patient admitted for further evaluation. Patient with history of pulmonary embolism in the past. She has been on Coumadin for over 15 years. Hospital Course: Patient had hernia repair. Patient is clinically doing well. At this time, patient is tolerating diet. Patient will continue with anti coagulation. Patient is stable for discharge. Patient will follow with General surgery. Vital Signs/Physical Exam: Temp Pulse Resp BP Pulse Ox 98.5 F 56 17 101/52 L 96 03/12/21 08:13 03/12/21 08:13 03/12/21 08:13 03/12/21 08:13 03/12/21 08:13 General: Alert, In no apparent distress, Oriented x3 Laboratory Data at Discharge: WBC Cancelled 03/11/21 05:00 Hgb Cancelled 03/11/21 05:00 Hct Cancelled 03/11/21 05:00 Plt Count Cancelled 03/11/21 05:00 PT 16.0 SECONDS (9.5-12.5) H 03/09/21 05:40 INR 1.39 03/09/21 05:40 APTT 27.1 SECONDS (24.3-36.9) 03/09/21 14:49 Sodium Cancelled 03/11/21 05:00 Potassium Cancelled 03/11/21 15:00 BUN Cancelled 03/11/21 05:00 Creatinine Cancelled 03/11/21 05:00 Glucose Cancelled 03/11/21 05:00 Magnesium Cancelled 03/11/21 05:00 Total Bilirubin 0.4 mg/dL (0.2-1.0) 03/05/21 04:15 AST 22 U/L (15-37) 03/05/21 04:15 ALT 24 U/L (12-78) 03/05/21 04:15 Alkaline Phosphatase 98 U/L (45-117) 03/05/21 04:15 Lipase 183 U/L (73-393) 03/11/21 04:30 Home Medications: Allopurinol 1 tab PO DAILY 03/05/21 B-Complex with Vitamin C [Super B Complex-Vitamin C] 1 tab PO DAILY 03/05/21 Calcium Carbonate/Vitamin D3 [Calcium 600-Vit D3 500 Softgel] 1 cap PO BID 03/05/21 Cetirizine HCl [Allergy Relief] 10 mg PO DAILY 03/05/21 Cholecalciferol (Vitamin D3) [Vitamin D3] 2,000 unit PO DAILY 03/05/21 Docusate [Colace Cap*] 100 mg PO DAILY 03/05/21 L. Acidophilus/L. Rhamnosus [Probiotic 15 Billion Cell Cap] 1 cap PO DAILY 03/05/21 Levothyroxine Sodium [Levothyroxine] 75 mcg PO [id number] 03/05/21 Losartan Potassium 50 mg PO DAILY 03/05/21 Omeprazole 20 mg PO DAILY 03/05/21 Potassium Chloride 20 meq PO BID 03/05/21 Triamterene/Hydrochlorothiazid [Triamterene-Hctz 75-50 mg Tab] 1 tab PO DAILY 03/05/21 Zinc 50 mg PO DAILY 03/05/21 acetaZOLAMIDE [Diamox*] 250 mg PO BID 03/05/21 Apixaban [Eliquis] 5 mg PO BID #60 tablet 03/09/21 Hydrocodone 7.5/APAP 325 [[place] 7.5/325 mg*] 1 tab PO Q4H PRN #10 tab 03/11/21 New Medications: Apixaban [Eliquis] 5 mg PO BID #60 tablet Hydrocodone 7.5/APAP 325 [[place] 7.5/325 mg*] 1 tab PO Q4H PRN #10 tab PRN Reason: Pain Scale 5-7 (Moderate) Physician Discharge Instructions: OK TO DC IV AND DC HOME FOLLOW-UP WITH PRIMARY CARE PROVIDER IN 1-2 WEEKS FOLLOW-UP WITH CARDIOLOGY IN 1-2 WEEKS follow-up with surgery in 1 week RETURN TO THE ER IF symptoms worsen CALL or TEXT DR. ARNOLD AT [phone] IF ANY QUESTIONS REGARDING HOSPITAL STAY. PLEASE CALL THE FLOOR AT [phone] IF ANY MEDICATION OR NURSING QUESTIONS. Diet: AHA Activity: Fall precautions Followup: [facility] [Provider Group] - 1-2 Weeks (schedule an appointment with your african history professor or call [facility] for an appointment ) Alberto Torres, [ACTIVE - CAN ADMIT] - 1-2 Weeks (PCP- call to schedule an appointment ) Alexandro Bunch MD [ACTIVE - CAN ADMIT] - 1 Week (surgeon- call to schedule an appointment ) Time spent managing pt's care (in minutes): 35
== END 2021-03-11 10:59 | disposition home or self-care (01) | DRG 354 ==
LOC: ER 23:46 → ERHOLD 03-05 07:20 → 2ND 03-05 10:49
PROVIDERS: ADMIT Family Medicine; ATTEND Hospitalist
PROC: 02HV33Z Insertion of Infusion Device into Superior Vena Cava, Percutaneous Approach (ICD-10-PCS; 2021-03-07)
PROC: 3E0436Z Introduction of Nutritional Substance into Central Vein, Percutaneous Approach (ICD-10-PCS; 2021-03-07)
PROC: 0WQF4ZZ Repair Abdominal Wall, Percutaneous Endoscopic Approach (ICD-10-PCS; principal; 2021-03-09 11:00)
DX: K42.0 Umbilical hernia with obstruction, without gangrene (principal); D68.9 Coagulation defect, unspecified; Z68.43 Body mass index [BMI] 50.0-59.9, adult; N39.0 Urinary tract infection, site not specified; E66.9 Obesity, unspecified; M10.9 Gout, unspecified; K21.9 Gastro-esophageal reflux disease without esophagitis; E03.9 Hypothyroidism, unspecified; B96.20 Unspecified Escherichia coli [E. coli] as the cause of diseases classified elsewhere; Z79.890 Hormone replacement therapy; Z79.899 Other long term (current) drug therapy; Z79.01 Long term (current) use of anticoagulants; Z86.711 Personal history of pulmonary embolism; Z86.718 Personal history of other venous thrombosis and embolism; Z79.1 Long term (current) use of non-steroidal anti-inflammatories (NSAID); Z20.822 Contact with and (suspected) exposure to COVID-19
CPT/HCPCS: 36415; 36569; 71045; 74177; 80048; 80076; 81003; 81015; 82565; 83036; 83690; 83735; 84132; 84439; 84443; 85025; 85049; 85610; 85730; 87040; 87077; 87086; 87088; 87186; 88302; 93005; 93306; 94010; 96361; 96365; 96367; 96375; 97161; 99285; J1100; J1170; J1644; J2270; J2405; J2543; J2704; J2710; J3010; J3411; J3430; J3475; J3480; J7030; J7040; J7042; J7120; J7799; Q9967; U0003